=== PATIENT | male | born 1955 | race Caucasian/White ===

== ENCOUNTER 2022-01-07 10:36 | Inpatient (IN) | payer MEDICAID, SELFPAY ==
[2022-01-07] VITALS (11 sets, daily range): BP systolic 86–141; BP diastolic 41–92
[~2022-01-07] VITALS: Ht 170.2 cm; Wt 81.2 kg
--- NOTE | 2022-01-07 10:38 | NUR ---
BIBA BLS TO ER BED 3
--- NOTE | 2022-01-07 10:49 | NUR ---
Patient being evaluated by physician at bedside.
--- NOTE | 2022-01-07 10:50 | NUR ---
66 y/o M TALIRaya from [facility] for evaluation of abnormal labs of WBC 25.25. Per staff, patient noted with increased LOC since yesterday. Patient placed on 2L by N/C SpO2 97%. Pt presented with Fleming, diapered, and stage 4 coccyx pressure ulcer per staff. Pt placed onto radio sportscaster showing HR 186, RR 39, SpO2 99% on 2L by N/C. ERMD at bedside. 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
[2022-01-07] MEDS ORDERED: ADENOSINE 6 MG/2 ML VIAL IVP ONE ×4 (10:55→11:15)
--- NOTE | 2022-01-07 11:05 | NUR ---
Lab at bedside
[2022-01-07] MEDS ORDERED: DILTIAZEM 25 MG/5 ML VIAL IVP ONE ×4 (11:15→13:10)
--- NOTE | 2022-01-07 11:25 | NUR ---
EMT at bedside
--- NOTE | 2022-01-07 11:35 | NUR ---
UA collected, handed to CPT Angela at ER bedside
--- NOTE | 2022-01-07 11:41 | NUR ---
pt taken to CT. RN Dell accompanied Rad staff. pt connected to [employer] and tele monitor in route.
--- NOTE | 2022-01-07 11:55 | NUR ---
Patient returned from CT via gurney and placed back onto radiation monitor.
[2022-01-07 11:57] LABS: APPEARANCE,URINE SL CLOUDY (CLEAR); BILIRUBIN,URINE NEGATIVE (NEGATIVE); BLOOD, URINE 3+ (NEGATIVE); COLOR,URINE YELLOW (YELLOW); LEUKOCYTE ESTERASE ,URINE 3+ (NEGATIVE); NITRITE, URINE NEGATIVE (NEGATIVE); UGLUCOSE NEGATIVE (NEGATIVE)
--- NOTE | 2022-01-07 11:59 | NUR ---
BP 76/53, Dr. Garcia made aware and orders to be placed.
[2022-01-07] MEDS ORDERED: NACL 0.9% 1,000 ML IV ONE ×2 (12:00→12:50)
[2022-01-07 12:05] LABS: HEMATOCRIT 35.9 % (36-52); HEMOGLOBIN 11.3 g/dL (12.0-18.0); MEAN CORPUSCULAR HEMOGLOBIN 27 pg (27-31); MEAN CORPUSCULAR HGB CONC 32 g/dL (33-37); MEAN CORPUSCULAR VOLUME 85.8 fL (80-94); PLATELET COUNT (AUTO) 134 K/uL (140-450); RED BLOOD CELL COUNT(AUTO) 4.18 MIL/uL (4.20-6.10); RED CELL DISTRIBUTION WIDTH 16.9 % (11.6-13.7); WHITE BLOOD COUNT (AUTO) 22.4 K/uL (4.8-10.8)
--- NOTE | 2022-01-07 12:10 | NUR ---
Desi whitney collected, walked to lab and handed to CPT Angela
[2022-01-07 12:29] LABS: ALBUMIN 1.8 g/dL (3.4-5.0); ANION GAP 26.4 (8-16); CARBON DIOXIDE 13.5 mmol/L (21-32); POTASSIUM 5.9 mmol/L (3.5-5.1); TOTAL BILIRUBIN 0.5 mg/dL (0.0-1.0)
[2022-01-07 12:38] LABS: TRICHOMONAS,URINE None Seen /HPF (None Seen); WBC,URINE 16-25 (MOD) /HPF (0-5); YEAST,URINE Few /HPF (None Seen)
[2022-01-07 12:39] LABS: CALCIUM OXALATE CRYSTALS,UR 0-10 /HPF (None Seen); COARSE GRANULAR CASTS,URINE None Seen /LPF (None Seen); FINE GRANULAR CASTS,URINE None Seen /LPF (None Seen); HYALINE CASTS, URINE None Seen /LPF (None Seen); OTHER CASTS, URINE None Seen /LPF (None Seen); OTHER CRYSTALS,URINE None Seen /HPF (None Seen); RED BLOOD CELL CASTS,URINE None Seen /LPF (None Seen); TRIPLE PHOSPHATE CRYSTAL,UR None Seen /HPF (None Seen); URIC ACID CRYSTALS,URINE None Seen /HPF (None Seen); URINE AMORPHOUS URATE None Seen /HPF (None Seen); WAXY CASTS,URINE None Seen /LPF (None Seen)
[2022-01-07 12:42] LABS: LYMPHOCYTES % (MANUAL) 6 % (20-46); MONOCYTES % (MANUAL) 6 % (5-12)
[2022-01-07 12:43] LABS: CREATININE 8.6 mg/dL (0.6-1.3)
--- NOTE | 2022-01-07 13:05 | NUR ---
# 16 FR Fleming catheter with 10 ml utilizing sterile technique. Immediate return of 525 ml cloud/yellow urine noted. Bedside drainage bag placed below level of bladder. Urine sample collected and sent to lab. Pt tolerated procedure well.
--- NOTE | 2022-01-07 13:08 | NUR ---
HR 177. Dr. Garcia made aware and orders will be placed.
[2022-01-07] MEDS ORDERED: cefTRIAXone 1,000 MG VIAL ONE (13:22)
--- NOTE | 2022-01-07 13:35 | NUR ---
UNABLE TO PRINT OUT SACRAL WOUND PHOTOS. CHARGE NURSE, RECEIVING BUNDLE PACKER MADE AWARE.
--- NOTE | 2022-01-07 13:38 | NUR ---
Bedside report given to JESSI Healy.
--- NOTE | 2022-01-07 13:40 | NUR ---
Patient will be admitted to care of Dr. Coombs. Admited to ICU. Will go to room ICU-8. Belongings list completed. Report to JESSI Healy.
--- NOTE | 2022-01-07 13:40 | NUR ---
PT BROUGHT IN BY ER NURSE VIA BETTY. PT IS RESTING IN BED AND IN NO SIGN OF DISTRESS. PT IS ALERT AND ORIENTED X 1. PT HAS A RIGHT 22 G IV RUNNING NS AT 100 ML/H. PT IS ON ROOM AIR AND O2 SAT OF 100%. PT HAS A MONTEMAYOR IN PLACE WITH WHITE CLOUDY URINE WITH TRACES OF HEMATURIA. PT HAS A STAGE IV ON SACRAL AREA. ALL SAFETY PRECAUTIONS ARE IN PLACE AND WILL CONTINUE TO MONITOR.
--- NOTE | 2022-01-07 13:40 | NUR ---
SEEN BY DR. NAVARRETE.
[2022-01-07] MEDS ORDERED: ACETAMINOPHEN 325 MG TAB PO PRN (13:50)
[2022-01-07] MEDS ORDERED: SODIUM BICARBONATE 4.2% 5 MEQ/10 ML SYR IV ONE (13:50)
[2022-01-07] MEDS ORDERED: DOCUSATE SODIUM 100 MG GELCAP PO PRN (13:50)
[2022-01-07] MEDS ORDERED: ZOLPIDEM 5 MG TAB PO PRN (13:50)
[2022-01-07] MEDS ORDERED: POTASSIUM CHLORIDE 10 MEQ TABER PO PRN (13:50)
[2022-01-07] MEDS ORDERED: ONDANSETRON 4 MG/2 ML VIAL IM/IVP PRN (13:50)
[2022-01-07] MEDS ORDERED: guaiFENesin DM 200/20 MG-10 ML 10 ML UDC PO PRN (13:50)
[2022-01-07 14:19] LABS: AMYLASE 38 U/L (25-115); CHOL/HDL RATIO 6.6 (1-4.5); FREE T4 (FREE THYROXINE) 1.04 ng/dL (0.76-1.46); HDL CHOLESTEROL 15 mg/dL (40-60); LDL (CALC) 46 mg/dL (60-100); LIPASE 81 U/L (73-393); MAGNESIUM 2.4 mg/dL (1.8-2.4); PHOSPHORUS 6.1 mg/dL (2.5-4.9); THYROID STIMULATING HORMONE 1.17 uIU/mL (0.34-3.74); TRIGLYCERIDES 192 mg/dL (30-150)
[2022-01-07] MEDS: NACL 0.9% 1,000 ML IV SCH ×2 (14:50→19:24)
[2022-01-07] MEDS ORDERED: PIPERACILLIN/TAZOBACTAM 3.375 GM in DEXTROSE 5% 50 ML IV SCH (18:00)
--- NOTE | 2022-01-07 18:00 | NUR ---
SEEN BY DR. ROBBINS.
[2022-01-07] MEDS: PIPERACILLIN/TAZOBACTAM 2.25 GM in DEXTROSE 5% 50 ML IV SCH (18:50)
--- NOTE | 2022-01-07 19:25 | NUR ---
ENDORSED CARE CONTRACT ADMIN NURSE FOR CONTINUITY OF CARE.
--- NOTE | 2022-01-07 19:30 | NUR ---
PT LAYING IN BED HOB ELEVATED, BS CLEAR AT APICES ; CLEAR/DIMINISHED AT BASES, NO SIGNS OF RESPIRATORY DISTRESS NOTED AT THIS TIME. PT IS CURRENTLY SATING 97% ON RA. WILL CONTINUE TO MONITOR.
[2022-01-07] MEDS ORDERED: NOREPINEPHRINE 4 MG/4 ML VIAL IV ONE (21:59)
[2022-01-07] MEDS: NOREPINEPHRINE 4 MG in DEXTROSE 5% 250 ML IV PRN (22:02)
[2022-01-08] VITALS (24 sets, daily range): BP systolic 82–117; BP diastolic 22–75
[2022-01-08] MEDS: PIPERACILLIN/TAZOBACTAM 2.25 GM in DEXTROSE 5% 50 ML IV SCH ×4 (00:18→17:33)
--- NOTE | 2022-01-08 02:24 | NUR ---
PATIENT STABLE NOW SR IN THE 90 VITALS SIGNS IN NORMAL LIMITS CREATINE 8.6 BUN 126 I CALL HIS BROTHER AND I ASK IF HE EVER HAS DIALISYS AND HE SAY NOT //Simone RN
--- NOTE | 2022-01-08 02:26 | NUR ---
I CALL DOCTOR KACEY AND I ASK FOR NOREPINEPHRINE BECAUSE PATIENT BP IS GETTING LOW AFTER THE LEVOPHE PATIENT BP IS STABLE WE ARE GOING AT 2 MCG //DiCaprio RN
--- NOTE | 2022-01-08 02:28 | NUR ---
PATIENT GOT HIS BATH AND TOLERATED WELL ALONG WITH ORAL CARE //DiCaprio RN
--- NOTE | 2022-01-08 02:29 | NUR ---
PATIENT NPO BECAUSE DR ROBBINS GO TO DO THE WOUND AT 11 AM//Simone BOWEN
[2022-01-08] MEDS: NACL 0.9% 1,000 ML IV SCH ×2 (05:23→14:21)
[2022-01-08 05:58] LABS: BASOPHILS % (AUTO) 0.2 % (0.0-2.0); EOSINOPHILS # (AUTO) 0.2 K/uL (0-0.4); HEMATOCRIT 31.7 % (36-52); HEMOGLOBIN 10.1 g/dL (12.0-18.0); LYMPHOCYTES # (AUTO) 0.9 K/uL (2.0-11.5); LYMPHOCYTES % (AUTO) 4.6 % (20.5-51.1); MEAN CORPUSCULAR HEMOGLOBIN 27 pg (27-31); MEAN CORPUSCULAR HGB CONC 32 g/dL (33-37); MEAN CORPUSCULAR VOLUME 84.2 fL (80-94); MONOCYTES # (AUTO) 0.8 K/uL (0.8-1.0); MONOCYTES % (AUTO) 4.1 % (1.7-9.3); NEUTROPHILS # (AUTO) 16.8 K/uL (1.8-7.7); NEUTROPHILS % (AUTO) 90.1 % (42.2-75.2); PLATELET COUNT (AUTO) 135 K/uL (140-450); RED BLOOD CELL COUNT(AUTO) 3.77 MIL/uL (4.20-6.10); RED CELL DISTRIBUTION WIDTH 17.3 % (11.6-13.7); WHITE BLOOD COUNT (AUTO) 18.6 K/uL (4.8-10.8)
[2022-01-08 06:13] LABS: ANION GAP 23.5 (8-16); CARBON DIOXIDE 14.9 mmol/L (21-32); POTASSIUM 4.4 mmol/L (3.5-5.1)
--- NOTE | 2022-01-08 07:30 | NUR ---
RECEIVED REPORT FROM GAS OPERATIONS ANALYST. PT IN BED WITH HOB ELEVATED. ALERT AND ORIENTED X 1, ARABIC SPEAKING. NO SOB ON ROOM AIR, NO S/S OF PAIN. HAS A RIGHT AC 22 G IV RUNNING NS AT 125 ML/H, LEVOPHED 6MCG/MIN. MONTEMAYOR IN PLACE WITH WHITE CLOUDY URINE WITH TRACES OF HEMATURIA. STAGE IV ON SACRAL AREA. PLAN FOR DEBRIDEMENT TODAY. ALL SAFETY PRECAUTIONS ARE IN PLACE AND WILL CONTINUE TO MONITOR.
--- NOTE | 2022-01-08 08:00 | NUR ---
WITH X1 LOOSE BM, ALLAN CARE DONE
--- NOTE | 2022-01-08 08:16 | NUR ---
PATIENT HAS BEEN SCREENED AND CATEGORIZED HIGH NUTRITION RISK. PATIENT WILL BE SEEN WITHIN 1-2 DAYS OF ADMISSION. CHAVA MCGOWAN RD
--- NOTE | 2022-01-08 08:50 | NUR ---
CATERING AND EVENTS MANAGER AT BEDSIDE
[2022-01-08] MEDS: PANTOPRAZOLE 40 MG INJ VIAL IVP SCH (09:13)
--- NOTE | 2022-01-08 09:20 | NUR ---
DUE MEDS GIVEN, MONETMAYOR CARE DONE.
--- NOTE | 2022-01-08 10:15 | NUR ---
WITH X1 LOOSE BM, ALLAN CARE DONE, WOUND CULTURE OBTAINED, WOUND CARE DONE
[2022-01-08] MEDS ORDERED: LIDOCAINE 1% 500 MG/50 ML VIAL ONE (11:01)
[2022-01-08] MEDS ORDERED: BUPIVACAINE-MPF/EPI 0.25% 10 ML VIAL INJ ONE (11:01)
--- NOTE | 2022-01-08 11:10 | NUR ---
DR ROBBINS AT BEDSIDE FOR SACRAL WOUND DEBRIDEMENT
--- NOTE | 2022-01-08 11:57 | NUR ---
DC PLANNING: THE PATIENT PRESENTED FROM [facility] WITH C/O INCREASED CONFUSION AND TACHYCARDIA WITH HR IN THE 180'S IN THE FIELD. GIVEN ADENOSINE AND CARDIZEM IVP IN THE ER WELL ROCEPHIN AND IVF'S. WBC'S 22.4, K+ 5.9 CAR 8.6, LACTIC ACID 3.7, BNP 283. UA + FOR BACTERIA AND WBC'S, EKG SHOWED AFIB/FLUTTER. ORDERS FOR CONSULTS WITH NEPHRO, PULMONOLOGY, SURGERY FOR HIS SACRAL DECUBITUS, ID AND CARDIOLOGY. PATIENT TO GO TO SURGERY TODAY FOR DEBRIDEMENT OF HIS SACRAL DECUBITUS. CM SPOKE WITH [facility] AND THE PATIENTS BROTHER FEDERICA BY PHONE. THE PATIENT HAD A CVA IN SEPTEMBER OF 2021 AND WAS HOSPITALIZED AT [facility] AND THEN TRANSFERRED TO [facility]. THE PATIENT IS PRIMARILY BEDBOUND BECAUSE OF HIS DECUBITUS BUT IS NORMALLY AWAKE AND ALERT AND ABLE TO ENGAGE IN CONVERSATION AND VERBALIZE HIS NEEDS. HE IS ABLE TO FEED HIMSELF AND REPOSITIONS HIMSELF IN BED. FAMILY ARE VERY INVOLVED IN HIS CARE AND VISIT HIM ALMOST DAILY AT [facility]. DC PLAN IS TO RETURN TO [facility] WHEN CLINICALLY STABLE, CM WILL FOLLOW. Addendum: 01/08/22 at 1205 by Ingris Cottrell CM Amended: Links added. Addendum: 01/10/22 at 1539 by Brianne Thomas RN DC PLANNING: S/P DEBRIDEMENT OF SACRAL ULCER STAGE 4 CONTINUE IV ABX ZOSYN, VANCO AND AMIKACIN , LOW BP RESTARTED LEVOPHED KAILYN DUDLEY FOLLOWING PER DR CHRIS LANCASTER TRENDING [facility]WARDS SLOWLY POSSIBLE DIALYSIS LEFT A MESSAGE FOR PT'S BROTHER. CM TO FOLLOW. Addendum: 01/11/22 at 1120 by Brianne Thomas RN DC PLANNING: CALLED PATIENT'S BROTHER JONELLEFEDERICA [phone] LEFT A MESSAGE. CM TO FOLLOW Addendum: 01/11/22 at 1415 by Brianne Thomas RN DC PLANNING: RECEIVED A CALL FROM PT'S BROTHER JONELLE FEDERICA [phone] NOTIFIED HIM THAT MD WANTED TO DISCUSS WITH HIM REGARDING DIALYSIS. MR SAL STATED HE WAS OUT OF TOWN AND JUST COME BACK AND CAN CALL HIM ANY TIME. CALLED DR PEREZ OCCUPATIONAL THERAPY ASSISTANT LEFT A MESSAGE. CM TO FOLLOW Addendum: 01/16/22 at 1724 by Brianne Thomas RN DC PLANNING: PATIENT IS ACCEPTED AT [facility] # TO GIVE REPORT [phone] CAN GO TO ROOM [facility] ARRANGED TRANSPORT WITH [employer] TIME 7 PM NOTIFIED SHALINI LUCAS CM TO FOLLOW Addendum: 01/16/22 at 1725 by Brianne Thomas RN DC PLANNING: PER DR NEHA PEARSON CANCELLED BECAUSE BONE SCAN NOT DONE. CM TO FOLLOW Addendum: 01/17/22 at 1249 by Brianne Thomas RN DC PLANNING: PATIENT IS GOING TO [facility] ROOM 214A ARRANGED TRANSPORT WITH [facility] UPTIME 2:45 PM NOTIFIED SHALINI BOWEN CM TO FOLLOW
--- NOTE | 2022-01-08 12:46 | NUR ---
PT ASLEEP IN BED, NO SOB, FLACC 0
[2022-01-08] MEDS: NOREPINEPHRINE 4 MG in DEXTROSE 5% 250 ML IV PRN (13:43)
--- NOTE | 2022-01-08 15:15 | NUR ---
PICC LINE INSERTED, PLACEMENT CONFIRMED BY CXR
--- NOTE | 2022-01-08 15:15 | NUR ---
RECEIVED BEDSIDE REPORT FROM THOMAS BOWEN FOR CONTINUITY OF CARE. PT IS SUPINE IN THE BED, AAOX1 AT BASELINE, PERRLA. ON ROOM AIR. SR ON THE MONITOR. ACTIVE BOWEL SOUNDS. INCONTINENT OF BOWEL. F/C TO GRAVITY, 300 ML NOTED IN THE BAG. PICC LINE TO COTY. RAC 22G IV, RFA 22G IV. INFUSING NS AT 125 ML/HR AND LEVOPHED AT 6 MCG/MIN. SKIN NOT INTACT, SACRAL WOUND, SEE WOUND ASSESSMENT. GENERALIZED WEAKNESS. ON STANDARD PRECAUTIONS. SAFETY PRECAUTIONS MET. INITIAL ASSESSMENT COMPLETE, WILL CONTINUE TO CLOSELY MONITOR.
--- NOTE | 2022-01-08 15:55 | NUR ---
01/08/22 RD INITIAL ASSESSMENT COMPLETED PLEASE REFER TO NUTRITION ASSESSMENT UNDER CARE ACTIVITY FOR ESTIMATED NUTRITIONAL NEEDS. 1. WHEN/IF MEDICALLY APPROPRIATE, RECOMMEND RENAL, MECHANICAL SOFT DIET 2. MONITOR NUTRITION-RELATED LAB VALUES 3. RD TO FOLLOW-UP 2-3 DAYS, HIGH RISK CHAVA MCGOWAN, LEANDRA
--- NOTE | 2022-01-08 17:15 | NUR ---
PT CLEANED AND REPOSITIONED. M LIGHT BROWN STOOL WITH MUCOUS NOTED. CHANGED DRESSING. WILL CONTINUE TO MONITOR.
--- NOTE | 2022-01-08 18:00 | NUR ---
PT EATING DINNER. COMPLETED 75%.
--- NOTE | 2022-01-08 18:20 | NUR ---
PT SEEN AND EXAMINED BY DR ROSARIO. NO NEW ORDERS AT THIS TIME. CONSIDERING HEMODIALYSIS, WILL REASSESS TOMORROW.
--- NOTE | 2022-01-08 19:10 | NUR ---
ENDORSED BEDSIDE REPORT TO JUAN PARHAM RN FOR CONTINUITY OF CARE.
--- NOTE | 2022-01-08 19:25 | NUR ---
PM SHIFT ASSESSMENT Patient is awake and alert, follows commands. Patient is on room air, RR even and unlabored. SR on monitor. Skin warm and dry. COTY PICCLINE in place with IVF infusing, no signs of infiltration noted. Fleming catheter in place and draining to gravity. Safety precautions in place, will continue to monitor.
[2022-01-08] MEDS: HYDROcodone/APAP 7.5/325 MG 1 TAB PO PRN (21:07)
--- NOTE | 2022-01-08 21:30 | NUR ---
Patient requesting something to eat and pain medication for left leg pain. Food provided per diet order and [place] given per MD order. Will continue to monitor.
[2022-01-09] VITALS (24 sets, daily range): BP systolic 77–124; BP diastolic 54–72
[2022-01-09] MEDS: NACL 0.9% 1,000 ML IV SCH ×4 (00:08→20:45)
[2022-01-09] MEDS: PIPERACILLIN/TAZOBACTAM 2.25 GM in DEXTROSE 5% 50 ML IV SCH ×4 (00:08→18:00)
[2022-01-09 05:43] LABS: BASOPHILS # (AUTO) 0.1 K/uL (0.00-0.22); BASOPHILS % (AUTO) 0.5 % (0.0-2.0); EOSINOPHILS # (AUTO) 0.9 K/uL (0-0.4); EOSINOPHILS % (AUTO) 6.3 % (0.0-4.0); HEMATOCRIT 28.3 % (36-52); HEMOGLOBIN 9.1 g/dL (12.0-18.0); LYMPHOCYTES # (AUTO) 1.5 K/uL (2.0-11.5); LYMPHOCYTES % (AUTO) 10.3 % (20.5-51.1); MEAN CORPUSCULAR HEMOGLOBIN 27 pg (27-31); MEAN CORPUSCULAR HGB CONC 32 g/dL (33-37); MEAN CORPUSCULAR VOLUME 84.8 fL (80-94); MONOCYTES # (AUTO) 0.8 K/uL (0.8-1.0); MONOCYTES % (AUTO) 5.6 % (1.7-9.3); NEUTROPHILS # (AUTO) 11.4 K/uL (1.8-7.7); NEUTROPHILS % (AUTO) 77.3 % (42.2-75.2); PLATELET COUNT (AUTO) 120 K/uL (140-450); RED BLOOD CELL COUNT(AUTO) 3.34 MIL/uL (4.20-6.10); WHITE BLOOD COUNT (AUTO) 14.8 K/uL (4.8-10.8)
[2022-01-09 06:12] LABS: ANION GAP 23.7 (8-16); CARBON DIOXIDE 14.5 mmol/L (21-32); POTASSIUM 4.2 mmol/L (3.5-5.1)
[2022-01-09 06:37] LABS: CREATININE 7.7 mg/dL (0.6-1.3)
[2022-01-09 07:08] LABS: T4 (THYROXINE) 4.1 ug/dL (4.5-12.0)
--- NOTE | 2022-01-09 07:10 | NUR ---
Dr. Brian brito on pt. States to turn off sedation to place pt on CPAP trial before attempting extubation. Addendum: 01/09/22 at 0753 by Agency Nurse JESSI Cedillo RN INCORRECT PATIENT
--- NOTE | 2022-01-09 07:20 | NUR ---
Dr. Torres rounding on pt. No new orders at this time.
--- NOTE | 2022-01-09 07:30 | NUR ---
ENDORSEMENT Patient care endorsed to carri BOWEN.
--- NOTE | 2022-01-09 07:30 | NUR ---
Received report on pt. Pt AAOx 2 to 3, able to verbalize needs, soft spoken. Pt states no pain at this time. No signs of acute distress noted. PICC line present in COTY with IVF and levophed drip running. Fleming in place draining urine to gravity. Multiple skin issues present, currently wearing knee brace, pt also has vitiligo. No other complaints at this time.
--- NOTE | 2022-01-09 08:30 | NUR ---
Pt finished 75% of breakfast tray this morning. Total assist needed for feeding. Pt tolerated well.
[2022-01-09] MEDS: PANTOPRAZOLE 40 MG INJ VIAL IVP SCH (09:30)
--- NOTE | 2022-01-09 11:25 | NUR ---
WOUND CARE EVALUATION NOTES: SKIN ASSESSMENT DONE ON WITH PRIMARY RN ON THIS 66 Y/O PATIENT ADMITTED TO [facility] WITH INITIAL DIAGNOSIS OF ALOC AND TACHYCARDIA. PAST MEDICAL HX: CVA AND PRESSURE INJURY. ALL ABOVE INFORMATION WAS OBTAINED FROM THE ADMISSION H&P. PER PRIMARY RN DR. ROBBINS PERFORMED BEDSIDE DEBRIDEMENT. PT. LEFT LOWER EXTREMITY WITH KNEE BRACE, SKIN ALTERATION NOTICES DURING ASSESSMENT WHEN BRACE REMOVED. PT. WITH HX OF CABG, REPORT TO DR. PRAKASH AND RECOMMEND ARTERIAL ULTRASOUND AND PER DR. PRAKASH TO LEAVE KNEE BRACE OFF. PT. ADMITTED WITH LOW FRANCISCO SCALE AT HIGH RISK, CONTINUE TO FOLLOW PRESSURE INJURY PREVENTION INTERVENTIONS. S/P SACRAL WOUND DEBRIDEMENT ON 01/08/2022. WOUND CULTURE PENDING. PLAN OF CARE DISCUSSED WITH PRIMARY RN. INTEGUMENTARY: -GENERALIZED VITILIGO LIMBS AND TRUNK OF BODY -DATA WAREHOUSE CONSULTANT RELATED PRESSURE INJURY TO LEFT KNEE BLANCHABLE REDNESS 2X7CM SKIN INTACT, LEFT STEPHEN 13X2 CM DTI, SKIN INTACT -DTI LEFT MEDIAL HEEL 3X4CM, SKIN INTACT -PRESSURE INJURY STAGE 4 SACRALCOCCYX INFECTED WOUND S/P DEBRIDEMENT [id number] UNDERMINING 3 OCLOCK DIRECTION 2CM, WOUND BED 40% PALE PINK TISSUE, 60 % MIRELES/BLACK SLOUGH TISSUE WITH MODERATE AMOUNT SEROSANGUINEOUS BLEEDING, MILD ODOR, WOUND EDGE WELL DEFINED, WITH ALLAN-WOUND SKIN DTI TO 3 OCLOCK DIRECTION 2X3CM, SEVERE MOISTURE ASSOCIATED DERMATITIS WITH DENUDED SKIN EXTENDED TO ALLAN-ANAL AND POSTERIOR MEDIAL THIGHS AND FURTHER DAMAGE INDICATED . RECOMMENDATIONS: -ARTERIAL ULTRASOUND TO BLE -KEEP KNEE BRACE OFF -APPLY SKIN PREP WIPE TO LEFT KNEE, LEFT STEPHEN, AND LEFT MEDIAL HEEL BID AND CHOLO -APPLY HEEL RAISERS TO HEELS, OFFLOAD HEELS -CLEANSE SACRALCOCCYX WOUND WITH NS. PAT DRY, PACK WITH SILVER ALGINATE DRESSING TO WOUND BED AND PACK WITH FANFOLED ONE PIECE KERLIX ROLL THEN APPLY CALMOSEPTINE CR. TO ALLAN WOUND SKIN, COVER WITH DRY DRESSING, SECURE WITH TAPE QD AND PRN IF SOILING -APPLY CALMOSEPTINE CR. TO SEVERE MOISTURE ASSOCIATED DERMATITIS TO ALLAN-ANAL AND POSTERIOR MEDIAL THIGHS SKIN BID AND PRN IF SOILING -POSITIONING: TURN AND REPOSITION PATIENT Q 2H OR SOONER USE PILLOWS TO KEEP BONY PROMINENCES FROM DIRECT CONTACT WITH SURFACES USE REPOSITIONING WEDGES TO PROVIDE 30-DEGREE ANGLE FOR SIDE LYING POSITIONS OFFLOADING OR FOAM DRESSING TO ALL TUBING TO PREVENT MEDICAL DEVICES RELATED PRESSURE INJURY -RE-EVALUATING AND MANAGING INCONTINENCE MONITOR SKIN CONDITION DURING POSITION CHANGE DO NOT MASSAGE REDNESS, BONY PROMINENCES, DO NOT USE DONUT-TYPE DEVICES FREQUENT ALLAN-CARE AND PROVIDE BARRIER CREAMS PRN IF SOILING MOISTURE CONTROL BY OFFER BED BADILLO/URINAL /ABSORBENT PAD TO WICK AND HOLD MOISTURE KEEP SKIN DRY AND PROTECT FROM FRICTION -MANAGE FRICTION/SHEAR/MOBILITY KEEP HOB AT THE LOWEST LEVEL OF ELEVATION NO MORE THAN 30 DEGREE UNLESS OTHERWISE CONTRAINDICATED USE LIFT SHEET OR TRANSFER DEVICE TO MOVE PATIENT AND PREVENT LATERAL SHEER. PROTECT HEELS, ELBOWS BONY PROMINENCES WITH SKIN BERRIES OR FOAM DRESSING IF EXPOSED TO FRICTION OFFLOAD BILATERAL HEELS BY PLACING PILLOWS UNDER CALVES AT ALL TIMES, UNLESS OTHERWISE CONTRAINDICATED -PRESSURE REDISTRIBUTION SURFACE THERAPY ABDIFATAH ISOFLEX SKYLER MATTRESS -NUTRITION: PLEASE FOLLOW RD RECOMMENDATIONS AND OFFER NUTRITION SUPPLEMENTS IF ORDERED. Addendum: 01/09/22 at 1242 by Raj Delong RN (Grace) -CLEANSE SACRALCOCCYX WOUND WITH NS. PAT DRY, PACK WITH SILVER ALGINATE DRESSING TO WOUND BED AND PACK WITH FANFOLED ONE PIECE KERLIX ROLL THEN APPLY CALMOSEPTINE CR. TO ALLAN WOUND SKIN, COVER WITH DRY DRESSING, SECURE WITH TAPE Q3D AND PRN IF SOILING
[2022-01-09] MEDS: MIDODRINE 5 MG TAB PO SCH ×2 (12:13→18:00)
--- NOTE | 2022-01-09 12:25 | NUR ---
Ultrasound at bedside for DVT screening per MD order
[2022-01-09] MEDS: MENTHOL/ZINC OXIDE 113 GM TUBE TP SCH (13:16)
[2022-01-09] MEDS ORDERED: VANCOMYCIN PER PHARMACY MC PRN (15:00)
[2022-01-09] MEDS ORDERED: VANCOMYCIN HCL 1.25 GM in DEXTROSE 5% 250 ML IV SCH (16:00)
[2022-01-09] MEDS ORDERED: AMIKACIN PER PHARMACY MC PRN (22:10)
[2022-01-09] MEDS ORDERED: AMIKACIN 600 MG in DEXTROSE 5% 100 ML IV SCH (22:30)
[2022-01-09] MEDS ORDERED: AMIKACIN 500 MG/2 ML VIAL IV ONE (23:15)
[2022-01-10] VITALS (25 sets, daily range): BP systolic 86–139; BP diastolic 50–81
[2022-01-10] MEDS: PIPERACILLIN/TAZOBACTAM 2.25 GM in DEXTROSE 5% 50 ML IV SCH ×4 (00:21→18:16)
[2022-01-10] MEDS: MENTHOL/ZINC OXIDE 113 GM TUBE TP SCH ×2 (00:22→13:00)
--- NOTE | 2022-01-10 00:50 | NUR ---
PATIENTCALM SLEEPING AT THIS TIME VITALS SIGNS IN NORMAL LIMITS STABLE NOT COMPLAINING OF PAIN //DiCaprio RN
[2022-01-10] MEDS: NACL 0.9% 1,000 ML IV SCH ×3 (05:14→22:03)
[2022-01-10] MEDS: MIDODRINE 5 MG TAB PO SCH ×3 (05:30→18:17)
[2022-01-10 06:30] LABS: BASOPHILS % (AUTO) 0.3 % (0.0-2.0); EOSINOPHILS # (AUTO) 1.1 K/uL (0-0.4); HEMATOCRIT 30.3 % (36-52); HEMOGLOBIN 9.7 g/dL (12.0-18.0); LYMPHOCYTES # (AUTO) 1.3 K/uL (2.0-11.5); LYMPHOCYTES % (AUTO) 9.7 % (20.5-51.1); MEAN CORPUSCULAR HEMOGLOBIN 27 pg (27-31); MEAN CORPUSCULAR HGB CONC 32 g/dL (33-37); MEAN CORPUSCULAR VOLUME 84.1 fL (80-94); MONOCYTES # (AUTO) 0.6 K/uL (0.8-1.0); MONOCYTES % (AUTO) 4.7 % (1.7-9.3); NEUTROPHILS # (AUTO) 10.2 K/uL (1.8-7.7); NEUTROPHILS % (AUTO) 77.3 % (42.2-75.2); PLATELET COUNT (AUTO) 138 K/uL (140-450); RED CELL DISTRIBUTION WIDTH 17.2 % (11.6-13.7); WHITE BLOOD COUNT (AUTO) 13.2 K/uL (4.8-10.8)
[2022-01-10 06:39] LABS: ANION GAP 21.2 (8-16); CARBON DIOXIDE 13.8 mmol/L (21-32)
[2022-01-10 06:55] LABS: CREATININE 7.2 mg/dL (0.6-1.3)
--- NOTE | 2022-01-10 07:09 | NUR ---
Received report on pt. Pt AAOx2/3, no signs of acute distress on room air, states no pain at this time. Remains on levophed drip and IVF. Fleming in place draining urine to gravity. No other complaints at this time.
[2022-01-10] MEDS: ECOTRIN 81 MG TABEC PO SCH (08:40)
[2022-01-10] MEDS: PANTOPRAZOLE 40 MG INJ VIAL IVP SCH (08:40)
--- NOTE | 2022-01-10 10:52 | NUR ---
Dr. Jerel brito on pt. Placed call out x2 to pt's brother Ramon Melvin [phone], no answer, left voicemail.
--- NOTE | 2022-01-10 11:07 | NUR ---
Pt receiving kidney ultrasound at bedside
--- NOTE | 2022-01-10 12:00 | NUR ---
Attempted to feed pt lunch, pt noted with hiccups. Pt was able to have soup from tray and take scheduled medication crushed before hiccups started. Informed pt will try again later. Vitals stable, no acute distress on room air. Saturating 99%
[2022-01-10] MEDS: NOREPINEPHRINE 4 MG in DEXTROSE 5% 250 ML IV PRN (14:07)
--- NOTE | 2022-01-10 14:29 | NUR ---
01/10/22 RD FOLLOW UP COMPLETED PLEASE REFER TO NUTRITION ASSESSMENT UNDER CARE ACTIVITY FOR ESTIMATED NUTRITIONAL NEEDS. 1. CONTINUE RENAL, MECHANICAL SOFT DIET TOLERATED 2. RECOMMEND NEPRO BID PER RD PROTOCOL 3. RECOMMEND VITAMIN C AND ZINC FOR WOUND HEALING 4. RD TO FOLLOW-UP 2-3 DAYS, HIGH RISK CHAVA MCGOWAN, LEANDRA
--- NOTE | 2022-01-10 15:00 | NUR ---
Perform wound care dressing change for soiled dressing. CHG bath given, linen changed.
--- NOTE | 2022-01-10 15:30 | NUR ---
Dr. Gill rounding on pt
--- NOTE | 2022-01-10 18:25 | NUR ---
Pt noted with on and off hiccups, Dr. Ivey made aware and states new orders to give Reglan 5 mg IV Q8HR PRN for hiccups.
[2022-01-10] MEDS ORDERED: METOCLOPRAMIDE 10 MG/2 ML INJ VIAL ONE (18:44)
[2022-01-10] MEDS: METOCLOPRAMIDE 10 MG/2 ML INJ VIAL IVP PRN (18:45)
--- NOTE | 2022-01-10 18:47 | NUR ---
Administered reglan PRN per MD order for hiccups
--- NOTE | 2022-01-10 19:08 | NUR ---
Endorsed plan of care to RN.
[2022-01-10] MEDS ORDERED: SIMVASTATIN 40 MG TAB ONE (21:31)
[2022-01-11] VITALS (20 sets, daily range): BP systolic 102–136; BP diastolic 50–78
[2022-01-11] MEDS: PIPERACILLIN/TAZOBACTAM 2.25 GM in DEXTROSE 5% 50 ML IV SCH ×5 (00:40→23:56)
[2022-01-11] MEDS: MENTHOL/ZINC OXIDE 113 GM TUBE TP SCH ×2 (00:41→12:25)
--- NOTE | 2022-01-11 02:25 | NUR ---
PATENT SLEEPING AT THIS TIME STABLE VITALS SIGNS IN NORMAL LIMITS NOT COMPLAINING OF PAIN //DiCaprio RN
[2022-01-11] MEDS: METOCLOPRAMIDE 10 MG/2 ML INJ VIAL IVP PRN (04:38)
[2022-01-11] MEDS: NACL 0.9% 1,000 ML IV SCH (04:59)
[2022-01-11] MEDS: MIDODRINE 5 MG TAB PO SCH ×3 (05:02→18:14)
[2022-01-11 05:49] LABS: BASOPHILS % (AUTO) 0.4 % (0.0-2.0); EOSINOPHILS # (AUTO) 0.6 K/uL (0-0.4); EOSINOPHILS % (AUTO) 4.4 % (0.0-4.0); HEMATOCRIT 30.1 % (36-52); HEMOGLOBIN 9.6 g/dL (12.0-18.0); LYMPHOCYTES # (AUTO) 1.6 K/uL (2.0-11.5); LYMPHOCYTES % (AUTO) 12.3 % (20.5-51.1); MEAN CORPUSCULAR HEMOGLOBIN 27 pg (27-31); MEAN CORPUSCULAR HGB CONC 32 g/dL (33-37); MEAN CORPUSCULAR VOLUME 83.9 fL (80-94); MONOCYTES # (AUTO) 0.6 K/uL (0.8-1.0); MONOCYTES % (AUTO) 4.5 % (1.7-9.3); NEUTROPHILS # (AUTO) 10.1 K/uL (1.8-7.7); NEUTROPHILS % (AUTO) 78.4 % (42.2-75.2); PLATELET COUNT (AUTO) 162 K/uL (140-450); RED BLOOD CELL COUNT(AUTO) 3.59 MIL/uL (4.20-6.10); RED CELL DISTRIBUTION WIDTH 17.1 % (11.6-13.7); WHITE BLOOD COUNT (AUTO) 12.9 K/uL (4.8-10.8)
[2022-01-11 07:03] LABS: ANION GAP 23.9 (8-16); CARBON DIOXIDE 11.1 mmol/L (21-32)
--- NOTE | 2022-01-11 07:35 | NUR ---
RECEIVED REPORT FROM WIND TURBINE MECHANICAL ENGINEER NURSE FOR CONTINUITY OF CARE. PT IN BED WITH HOB ELEVATED. ALERT AND ORIENTED X 2, GREENLANDIC SPEAKING. NO SOB ON ROOM AIR, NO S/S OF PAIN. HAS COTY PIC LINE RUNNING NS AT 125 ML/H, LEVOPHED 1 MCG/MIN. MONTEMAYOR IN PLACE WITH WHITE CLOUDY URINE. SKIN IS WARM, DRY, AND NON-INTACT. STAGE IV ON SACRAL AREA. S/P SACRAL DEBRIDEMENT 01/08/22. MONTEMAYOR CATH IN PLACE DRAINING CLOUDY YELLOW URINE. PLAN OF CARE DISCUSSED. ALL SAFETY PRECAUTIONS ARE IN PLACE AND WILL CONTINUE TO MONITOR.
--- NOTE | 2022-01-11 09:20 | NUR ---
ALL SCHEDULED MEDS GIVEN. PT IS STABLE. NO DISTRESS NOTED. WILL CONTINUE TO MONITOR.
[2022-01-11] MEDS: ECOTRIN 81 MG TABEC PO SCH (09:21)
[2022-01-11] MEDS: PANTOPRAZOLE 40 MG INJ VIAL IVP SCH (09:21)
--- NOTE | 2022-01-11 10:55 | NUR ---
DR. BOUCHER AT PATIENT'S BEDSIDE.
--- NOTE | 2022-01-11 11:23 | NUR ---
DR. GROVER AT PATIENT'S BEDSIDE.
[2022-01-11] MEDS: SODIUM BICARBONATE 8.4% 100 MEQ in NACL 0.45% 1,000 ML IV SCH ×2 (12:22→22:22)
--- NOTE | 2022-01-11 12:58 | NUR ---
ALL SCHEDULED MEDS GIVEN. PT IS STABLE. NO DISTRESS NOTED. WILL CONTINUE TO MONITOR.
--- NOTE | 2022-01-11 13:10 | NUR ---
CHANGED PATIENT'S DRESSING AND KEPT CLEAN AND DRY.
--- NOTE | 2022-01-11 15:30 | NUR ---
VISITOR AT PATIENT'S BEDSIDE.
--- NOTE | 2022-01-11 18:15 | NUR ---
ALL SCHEDULED MEDS GIVEN. PT IS STABLE. NO DISTRESS NOTED. WILL CONTINUE TO MONITOR.
--- NOTE | 2022-01-11 19:41 | NUR ---
ENDORSED TO BARREL HEADER NURSE FOR CONTINUITY OF CARE. PT IS STABLE.
--- NOTE | 2022-01-11 19:45 | NUR ---
RECEIVED REPORT AT BEDSIDE FROM DAYAMI JOHNSON FOR CONTINUITY OF CARE, PT SITTING UP IN BED HOB ELEVATED 45% HE IS RESTING IN BED WATCHING TV ON ROOM AIR WITH NO S/S OF PAIN OR DISTRESS NOTED. HE HAS A RIGHT UPPER ARM PICC LINE RUNNING SODIUM BICARB AT 100MLS/HR. PT ALSO HAS A MONTEMAYOR CATHETER INTACT DRAINING YELLOW URINE. V/S FOLLOWS: PT 98.5 P 67 R 18 B/P 116/61 02 96%. ALL FALLS PRECAUTIONS IN PLACE.
--- NOTE | 2022-01-11 21:15 | NUR ---
PT WAS TURNED, CHANGED AND REPOSITIONED IN BED. DRESSING ON SACRAL CLEANED AND CHANGED DUE TO PT HAVING A BOWEL MOVEMENT.PT WAS GIVEN ORDERED HEPARIN SQ SHOT PT IS AOX 1-2 AND UNABLE TO VERBALIZE UNDERSTANDING OF MEDICATION. ALL ORDERED PRECAUTIONS IN PLACE.
--- NOTE | 2022-01-11 22:40 | NUR ---
PT SITTING UP IN BED WATCHING TV ON ROOM AIR S/S OF PAIN OR DISTRESS NEW BAG OF SODIUM BICARBONATE HUNG. ALL ORDERED PRECAUTIONS IN PLACE.
[2022-01-12] VITALS (9 sets, daily range): BP systolic 103–141; BP diastolic 57–79
--- NOTE | 2022-01-12 00:27 | NUR ---
PT WAS GIVEN ORDERED IVPB ZOSYN WHICH WAS HUNG AND RUNNING ORDERED. PT UNABLE TO VERBALIZE UNDERSTANDING. PT ALSO TURNED CHANGED AND REPOSITIONED IN BED NEW DRESSING PROVIDED BECAUSE OLD DRESSING WAS SOILED. CALMOSEPTINE LOTION PROVIDED TO ALLAN REDNESS AREAS.
[2022-01-12] MEDS: MENTHOL/ZINC OXIDE 113 GM TUBE TP SCH ×2 (01:10→12:54)
[2022-01-12] MEDS: METOCLOPRAMIDE 10 MG/2 ML INJ VIAL IVP PRN (03:00)
--- NOTE | 2022-01-12 03:50 | NUR ---
PT WAS TURNED, CLEANED AND REPOSITIONED IN BED. WOUND CARE REDRESSED DUE TO PT HAVING ANOTHER BM. MONTEMAYOR CATHETER CARE PROVIDED.PT PROVIDED ORAL CARE WELL. ALL ORDERED PRECAUTIONS IN PLACE.
--- NOTE | 2022-01-12 04:30 | NUR ---
PT TRANSFERRED TO [facility] UNIT ROOM 121B. BICARB CONTINUES TO RUN AT 100MLS/HR ORDERED. PT REQUESTS ATTENDED BY STAFF.ALL ORDERED PRECAUTIONS IN PLACE.
[2022-01-12] MEDS: PIPERACILLIN/TAZOBACTAM 2.25 GM in DEXTROSE 5% 50 ML IV SCH ×3 (05:48→17:52)
--- NOTE | 2022-01-12 06:03 | NUR ---
LUIS HUNG AND RUNNING ORDERED.
[2022-01-12] MEDS: MIDODRINE 5 MG TAB PO SCH ×3 (06:21→18:08)
--- NOTE | 2022-01-12 06:32 | NUR ---
MIDODRINE HELD DUE TO INCREASED B/P. B/P IS (120/65)
--- NOTE | 2022-01-12 07:30 | NUR ---
RECEIVED REPORT FROM SENIOR HEALTH EDUCATOR NURSE FOR CONTINUITY OF CARE. PT IN BED WITH HOB ELEVATED. ALERT AND ORIENTED X 2, NORWEGIAN SPEAKING. NO SOB ON ROOM AIR, NO S/S OF PAIN. HAS COTY PIC LINE RUNNING INFUSING FLUIDS WELL. MONTEMAYOR IN PLACE WITH WHITE CLOUDY URINE. SKIN IS WARM, DRY, AND NON-INTACT. STAGE IV ON SACRAL AREA. S/P SACRAL DEBRIDEMENT 01/08/22. REINFORCED WITH DRESSING. MONTEMAYOR CATH IN PLACE DRAINING CLOUDY YELLOW URINE. PLAN OF CARE DISCUSSED. ALL SAFETY PRECAUTIONS ARE IN PLACE AND WILL CONTINUE TO MONITOR.
[2022-01-12] MEDS: PANTOPRAZOLE 40 MG INJ VIAL IVP SCH (08:41)
[2022-01-12] MEDS: ECOTRIN 81 MG TABEC PO SCH (08:41)
[2022-01-12] MEDS: SODIUM BICARBONATE 8.4% 100 MEQ in NACL 0.45% 1,000 ML IV SCH ×2 (09:07→22:00)
--- NOTE | 2022-01-12 09:45 | NUR ---
ALL SCHEDULED MEDS GIVEN. PT IS STABLE. NO DISTRESS NOTED. WILL CONTINUE TO MONITOR.
--- NOTE | 2022-01-12 11:04 | NUR ---
(01/12/22) RD FOLLOW UP COMPLETED PLEASE REFER TO NUTRITION PROGRESS NOTE UNDER CARE ACTIVITY FOR ESTIMATED NUTRITION NEEDS. RD RECOMMENDATIONS: 1. IF PO INTAKES CONTINUE ~25%, CONSIDER LIBERALIZING DIET OF 2GM SODIUM, MECHANICAL SOFT. ---IF PT START DIALYSIS, CONSIDER CONTINUING ON RENAL MECHANICAL SOFT DIET. 2. CONTINUE NEPRO BID PER RD PROTOCOL 3. RD TO FOLLOW-UP 2-3 DAYS, HIGH RISK THANH BRANHAM MS, RDN
[2022-01-12] MEDS: ALGINATE DRESSING MC SCH (12:54)
--- NOTE | 2022-01-12 13:35 | NUR ---
ALL SCHEDULED MEDS GIVEN. PT IS STABLE. NO DISTRESS NOTED. WILL CONTINUE TO MONITOR
--- NOTE | 2022-01-12 15:05 | NUR ---
CHECKED ON PATIENT. PT IS STABLE. NO DISTRESS NOTED. WILL CONTINUE TO MONITOR.
--- NOTE | 2022-01-12 18:14 | NUR ---
ALL SCHEDULED MEDS GIVEN. PT IS STABLE. NO DISTRESS NOTED. WILL CONTINUE TO MONITOR.
[2022-01-12] MEDS ORDERED: VANCOMYCIN PER PHARMACY MC PRN (18:40)
--- NOTE | 2022-01-12 19:30 | NUR ---
ENDORSED TO HOSPITALIST PHYSICIAN NURSE FOR CONTINUITY OF CARE. PT IS STABLE.
[2022-01-12] MEDS ORDERED: VANCOMYCIN 1GM/DEXT 5% PREMIX 200 ML IV ONE (22:40)
[2022-01-12] MEDS ORDERED: VANCOMYCIN 1,000 MG VIAL ONE (22:44)
[2022-01-13] VITALS (7 sets, daily range): BP systolic 94–139; BP diastolic 49–71
[2022-01-13] MEDS: PIPERACILLIN/TAZOBACTAM 2.25 GM in DEXTROSE 5% 50 ML IV SCH ×4 (00:23→17:29)
--- NOTE | 2022-01-13 00:52 | NUR ---
PATIENT SLEEPING ON ROOM AIR SAT 97% ON MONITOR SINUS. LUNGS DIMINISH ABDOMEN SOFT OBESE HAS RIGHT PICC LINE INFUSING I/2 NS 2 AMPS NA BICARB 100 HOUR. HAS F/C DRAINING YELLOW URINE.PHARMACY CALL TO TELL ME TO GIVE VANCO 1 GRM AT 2300 WAS GIVEN.PATIENT HAS A STAGE 4 AT SACRUM. CARE DONE AT 0100 TO WOUND. NO DISTRESS NOTED.
[2022-01-13] MEDS: MENTHOL/ZINC OXIDE 113 GM TUBE TP SCH ×2 (01:06→13:16)
[2022-01-13] MEDS: SODIUM BICARBONATE 8.4% 100 MEQ in NACL 0.45% 1,000 ML IV SCH ×2 (06:00→09:10)
[2022-01-13] MEDS: MIDODRINE 5 MG TAB PO SCH ×3 (06:18→18:46)
--- NOTE | 2022-01-13 07:40 | NUR ---
NOTES: Received report from rafat BOWEN, patient alert, awake, slow response, Estonian speaking, vomited blood with clots, oral suction and oral rinse done, per report no bleeding last night. morning care provided. keep hob elevated to prevent aspiration.
--- NOTE | 2022-01-13 07:45 | NUR ---
found patient with blood from oral and nares - assisted rn with setting up of suction and cleaning up patient.
[2022-01-13 07:51] LABS: BASOPHILS # (AUTO) 0.1 K/uL (0.00-0.22); BASOPHILS % (AUTO) 0.5 % (0.0-2.0); EOSINOPHILS # (AUTO) 0.4 K/uL (0-0.4); EOSINOPHILS % (AUTO) 3.5 % (0.0-4.0); HEMATOCRIT 25.2 % (36-52); HEMOGLOBIN 8.2 g/dL (12.0-18.0); LYMPHOCYTES # (AUTO) 1.7 K/uL (2.0-11.5); MEAN CORPUSCULAR HEMOGLOBIN 26 pg (27-31); MEAN CORPUSCULAR HGB CONC 32 g/dL (33-37); MEAN CORPUSCULAR VOLUME 81.7 fL (80-94); MONOCYTES # (AUTO) 0.6 K/uL (0.8-1.0); MONOCYTES % (AUTO) 4.6 % (1.7-9.3); NEUTROPHILS % (AUTO) 78.4 % (42.2-75.2); PLATELET COUNT (AUTO) 213 K/uL (140-450); RED BLOOD CELL COUNT(AUTO) 3.09 MIL/uL (4.20-6.10); WHITE BLOOD COUNT (AUTO) 12.8 K/uL (4.8-10.8)
[2022-01-13 08:57] LABS: ANION GAP 15.8 (8-16); CARBON DIOXIDE 22.2 mmol/L (21-32)
[2022-01-13] MEDS: ECOTRIN 81 MG TABEC PO SCH (09:00)
[2022-01-13 09:03] LABS: CREATININE 5.6 mg/dL (0.6-1.3)
[2022-01-13] MEDS: PANTOPRAZOLE 40 MG INJ VIAL IVP SCH ×2 (09:10→21:00)
[2022-01-13] MEDS ORDERED: COMMUNICATION ORDER MC PRN (09:25)
[2022-01-13] MEDS ORDERED: VANCOMYCIN 1,000 MG in DEXTROSE 5% 250 ML IV SCH (11:00)
--- NOTE | 2022-01-13 13:00 | NUR ---
patient had large bowel movement bloody with clots. sample for stool ob collected and sent to lab. dr. campuzano (IM) and DR kinsey ( Nephro) is here made aware. new order received noted.
[2022-01-13] MEDS: KCL 20 MEQ/WATER INJ PREMIX 200 ML IV SCH ×2 (13:08→15:15)
[2022-01-13 13:47] LABS: HEMATOCRIT 24.8 % (36-52)
[2022-01-13 14:48] LABS: MAGNESIUM 1.5 mg/dL (1.8-2.4)
--- NOTE | 2022-01-13 15:19 | NUR ---
Notes: patient currentyly off unit for CT scan ordered.
[2022-01-13 18:20] LABS: HEMATOCRIT 22.2 % (36-52); HEMOGLOBIN 7.2 g/dL (12.0-18.0)
--- NOTE | 2022-01-13 19:00 | NUR ---
patient consumed 100% of nephro supplement. MD campuzano informed about the result of h/h and mg. new order received noted and carried out.
[2022-01-13] MEDS ORDERED: MAG SULF 2000 MG/WATER PREMIX 50 ML IV ONE (19:05)
[2022-01-13] MEDS: FUROSEMIDE 20 MG/2 ML VIAL IVP SCH (21:00)
[2022-01-14] VITALS (7 sets, daily range): BP systolic 106–137; BP diastolic 60–70
[2022-01-14] MEDS ORDERED: MAG SULF 2000 MG/WATER PREMIX 50 ML IV ONE (00:25)
[2022-01-14] MEDS: MENTHOL/ZINC OXIDE 113 GM TUBE TP SCH ×2 (01:00→13:06)
--- NOTE | 2022-01-14 01:08 | NUR ---
PATIENT STILL WILL LOWER RECTAL BLEED PATIENTS H/H 7.2 WANTS PATIENT TO GET 1 UN[address] TAVARES AT 2019 STATED TO GIVE THE BLOOD AND HE WILL SIGN CONSENT IN A.M. I GOT CONSENT CALLED PATIENT BROTHER HE CONSENT TO PATIENT TO HAVE BLOOD AT 2129. TWO NURSE WITNESS AT 2129 AND SIGN CONSENT CALLED COUNTERSINKER BALANCE SCREW HOLE TO LET HER KNOW WILL SIGN CONSENT IN A.M AND THAT HE WANT PATIENT TO GET 1 UNIT OF PRBC TONITE H/H 7.2. SUPER STATED TO ME SHE WOULD CALL LAB TO LET THEM KNOW THAT DR. TAVARES WILL SIGNS CONSENT IN A.M. BLOOD STARTED AT 2134 END AT 5 NO BLOOD REACTION NOTED TEMP 98.7. BLOOD BANK # [id number]. PATIENT RECEIVED MAG. 2000MG AT 0030. PATIENT HAS LARGE DARK LIQ. STOOL. AROUND 2200. LAB TO DRAW AT 0300 DUE TO BLOOD GIVEN.
[2022-01-14 03:18] LABS: BASOPHILS # (AUTO) 0.1 K/uL (0.00-0.22); BASOPHILS % (AUTO) 0.8 % (0.0-2.0); EOSINOPHILS # (AUTO) 0.5 K/uL (0-0.4); EOSINOPHILS % (AUTO) 3.7 % (0.0-4.0); HEMATOCRIT 24.3 % (36-52); HEMOGLOBIN 8.2 g/dL (12.0-18.0); LYMPHOCYTES # (AUTO) 1.8 K/uL (2.0-11.5); LYMPHOCYTES % (AUTO) 12.8 % (20.5-51.1); MEAN CORPUSCULAR HEMOGLOBIN 28 pg (27-31); MEAN CORPUSCULAR HGB CONC 34 g/dL (33-37); MEAN CORPUSCULAR VOLUME 83.6 fL (80-94); MONOCYTES # (AUTO) 0.7 K/uL (0.8-1.0); MONOCYTES % (AUTO) 5.1 % (1.7-9.3); NEUTROPHILS # (AUTO) 10.9 K/uL (1.8-7.7); NEUTROPHILS % (AUTO) 77.6 % (42.2-75.2); PLATELET COUNT (AUTO) 209 K/uL (140-450); RED BLOOD CELL COUNT(AUTO) 2.91 MIL/uL (4.20-6.10); RED CELL DISTRIBUTION WIDTH 17.4 % (11.6-13.7); WHITE BLOOD COUNT (AUTO) 14.1 K/uL (4.8-10.8)
[2022-01-14 03:34] LABS: ANION GAP 14.7 (8-16); CARBON DIOXIDE 23.6 mmol/L (21-32); POTASSIUM 3.3 mmol/L (3.5-5.1)
[2022-01-14 03:43] LABS: CREATININE 5.2 mg/dL (0.6-1.3)
[2022-01-14] MEDS: PIPERACILLIN/TAZOBACTAM 2.25 GM in DEXTROSE 5% 50 ML IV SCH ×6 (06:00→23:51)
[2022-01-14] MEDS: MIDODRINE 5 MG TAB PO SCH (06:17)
--- NOTE | 2022-01-14 06:18 | NUR ---
ML 2 AMPS NA BICARB AT 0600 HELD PROAMATINE PATIENT APPEARS AT RISK FOR SWALLOWING, . ML SMITH 2.25GM 0600.
--- NOTE | 2022-01-14 07:25 | NUR ---
RECEIVED REPORT FROM BEEF [employer] MANAGER NURSE FOR CONTINUITY OF CARE. PT AWAKE IN BED. BREATHING SYMMETRICAL ON ROOM AIR. FLACC O. WITH COTY PICC LINE 2 LUMEN RUNNING SODIUM BICARB AT 50CC/HR. PER REPORT PT HAD EPISODE OF BLOODY EMESIS AND STOOL YESTERDAY, WILL MONITOR FOR FURTHER EPISODES. ALSO WAS GIVEN 1PRBC LAST NIGHT. MONTEMAYOR CATHETER INTACT AND PATENT DRAINING YELLOW URINE ON GRAVITY. CALL LIGHT WITHIN REACH. ALL SAFETY MEASURES IN PLACE.
[2022-01-14] MEDS: PANTOPRAZOLE 40 MG INJ VIAL IVP SCH (08:25)
[2022-01-14] MEDS: FUROSEMIDE 20 MG/2 ML VIAL IVP SCH ×2 (08:31→21:03)
--- NOTE | 2022-01-14 08:41 | NUR ---
SCHEDULED AM MEDICATION GIVEN ORDERED.
[2022-01-14] MEDS ORDERED: POTASSIUM CHLORIDE 20% 40 MEQ/15 ML UDC PO PRN (08:50)
[2022-01-14] MEDS ORDERED: POTASSIUM CHL 20 MEQ / DEXT 5% 1,000 ML IV ONE (09:15)
[2022-01-14 09:34] LABS: HEMATOCRIT 29.5 % (36-52); HEMOGLOBIN 9.6 g/dL (12.0-18.0)
--- NOTE | 2022-01-14 11:55 | NUR ---
PER REPORT PT HAD EPISODE OF BLOODY EMESIS AND BLOODY STOOL YESTERDAY, NOTED PT WITH BLACK STOOL THIS MORNING. PT DOESN'T HAVE CONSULT WITH GI, OBTAINED ORDER FOR GI CONSULT. ALSO ORDERED TO D/C HEPARIN AND ASPIRIN AND ORDER FOR OCCULT BLOOD. Addendum: 01/14/22 at 1211 by Fatou Sanchez RN PT ALREADY HAS OCCULT BLOOD DONE WITH POSITIVE RESULT.
--- NOTE | 2022-01-14 12:11 | NUR ---
LEFT MESSAGE TO DR ANDERSON REGARDING CONSULT ORDER.
[2022-01-14] MEDS ORDERED: NACL 0.9% IVP SCH (13:00)
[2022-01-14] MEDS: PANTOPRAZOLE 80 MG in NACL 0.9% 100 ML IVP SCH ×2 (13:00→21:03)
[2022-01-14] MEDS ORDERED: PANTOPRAZOLE IVP SCH (13:00)
--- NOTE | 2022-01-14 13:59 | NUR ---
BROTHER JESSICA REQUESTING TO CHANGE DIET TO PUREE, PT ON MECHANICAL SOFT GROUND PER BROTHER PT POCKETING FOOD. DR SOLOMON MADE AWARE WITH ORDER FOR NPO AND SWALLOW EVAL.
--- NOTE | 2022-01-14 14:30 | NUR ---
PT SEEN BY DR HADDAD, CONSULTING DIETIST WITH ORDER TO DC SODIUM BICARB AND START ON D5W 65CC/HR X 2 BAGS.
[2022-01-14] MEDS: DEXTROSE 5% 1,000 ML IV SCH (14:46)
--- NOTE | 2022-01-14 16:45 | NUR ---
PT ASLEEP IN BED. BREATHING SYMMETRICAL. NO EPISODE OF BLOODY EMESIS DURING THIS SHIFT, NOTED WITH BLACK BOWEL MOVEMENT. WILL CONTINUE TO MONITOR.
--- NOTE | 2022-01-14 19:20 | NUR ---
ENDORSED PT TO SUPPRESSION CREW LEADER NURSE.
[2022-01-14] MEDS: carvediloL 3.125 MG TAB PO SCH (21:03)
[2022-01-14] MEDS: HYDROcodone/APAP 7.5/325 MG 1 TAB PO PRN (23:58)
[2022-01-15] VITALS: BP 129/73
--- NOTE | 2022-01-15 02:06 | NUR ---
PERINEAL CARE, WOUND CARE, MONTEMAYOR CATHETER CARE AND REPOSITIONING WITH ELIESER WORKMAN.
[2022-01-15 04:00] VITALS: BP 105/83
[2022-01-15] MEDS: DEXTROSE 5% 1,000 ML IV SCH (04:48)
[2022-01-15] MEDS: PIPERACILLIN/TAZOBACTAM 2.25 GM in DEXTROSE 5% 50 ML IV SCH ×3 (05:56→17:17)
[2022-01-15 06:16] LABS: ANION GAP 15.6 (8-16); CARBON DIOXIDE 21.9 mmol/L (21-32); POTASSIUM 3.5 mmol/L (3.5-5.1)
[2022-01-15 06:17] LABS: CREATININE 5.1 mg/dL (0.6-1.3)
[2022-01-15 06:35] LABS: BASOPHILS # (AUTO) 0.1 K/uL (0.00-0.22); BASOPHILS % (AUTO) 0.4 % (0.0-2.0); EOSINOPHILS # (AUTO) 0.7 K/uL (0-0.4); HEMATOCRIT 25.5 % (36-52); HEMOGLOBIN 8.5 g/dL (12.0-18.0); LYMPHOCYTES # (AUTO) 1.6 K/uL (2.0-11.5); LYMPHOCYTES % (AUTO) 12.4 % (20.5-51.1); MEAN CORPUSCULAR HEMOGLOBIN 28 pg (27-31); MEAN CORPUSCULAR HGB CONC 33 g/dL (33-37); MEAN CORPUSCULAR VOLUME 83.6 fL (80-94); MONOCYTES # (AUTO) 0.5 K/uL (0.8-1.0); NEUTROPHILS # (AUTO) 10.3 K/uL (1.8-7.7); NEUTROPHILS % (AUTO) 78.2 % (42.2-75.2); PLATELET COUNT (AUTO) 254 K/uL (140-450); RED BLOOD CELL COUNT(AUTO) 3.05 MIL/uL (4.20-6.10); RED CELL DISTRIBUTION WIDTH 17.4 % (11.6-13.7); WHITE BLOOD COUNT (AUTO) 13.2 K/uL (4.8-10.8)
[2022-01-15 06:38] LABS: ALBUMIN 1.4 g/dL (3.4-5.0); BILIRUBIN,DIRECT 0.1 mg/dL (0.0-0.3); TOTAL BILIRUBIN 0.4 mg/dL (0.0-1.0)
--- NOTE | 2022-01-15 07:02 | NUR ---
HANDOFF WITH FRANCIS LEACH RN. FABIANO JACK RN
--- NOTE | 2022-01-15 07:10 | NUR ---
RECEIVED REPORT FROM TEMPERING OVEN OPERATOR NURSE FOR CONTINUITY OF CARE. PER REPORT, NO EPISODE OF BLOODY EMESIS LAST NIGHT, BOWEL MOVEMENT APPEARS TO BE DARK. PT ASLEEP IN BED. BREATHING SYMMETRICAL ON ROOM AIR. FLACC O. COTY PICC LINE DOUBLE LUMEN RUNNING D5W AT 65CCCC/HR AND PROTONIX AT 10CC/HR. MONTEMAYOR CATHETER INTACT AND PATENT DRAINING YELLOW URINE. CALL LIGHT PLACED WITHIN REACH. ALL SAFETY MEASURES IN PLACE.
[2022-01-15 08:00] VITALS: BP 124/73
[2022-01-15] MEDS: ATORVASTATIN 20 MG TAB PO SCH (09:00)
[2022-01-15] MEDS: ALGINATE DRESSING MC SCH (09:00)
[2022-01-15] MEDS: carvediloL 3.125 MG TAB PO SCH ×2 (09:00→20:30)
[2022-01-15] MEDS: PANTOPRAZOLE 80 MG in NACL 0.9% 100 ML IVP SCH ×2 (09:00→22:12)
[2022-01-15] MEDS: FUROSEMIDE 20 MG/2 ML VIAL IVP SCH ×2 (09:06→20:30)
--- NOTE | 2022-01-15 09:10 | NUR ---
PT SEEN BY DR ANDERSON
--- NOTE | 2022-01-15 11:17 | NUR ---
NEW ORDER TO INSERT PICC LINE, PT ALREADY HAS COTY PICC LINE IN PLACE, DOUBLE LUMEN. DR SOLOMON AT STATION AND MADE AWARE, TO DC NEW INSERT PICC LINE ORDER.
--- NOTE | 2022-01-15 11:35 | NUR ---
AM PO MEDICATIONS NOTED GIVEN, PT CURRENTLY NPO, PENDING SWALLOW EVAL. Addendum: 01/15/22 at 1731 by Fatou Sanchez RN CORRECTION *NOT GIVEN
[2022-01-15 12:00] VITALS: BP 136/75
[2022-01-15] MEDS: MENTHOL/ZINC OXIDE 113 GM TUBE TP SCH ×2 (13:00)
--- NOTE | 2022-01-15 13:57 | NUR ---
SEEN BY ST FOR EVAL WITH RECOMMENDATION FOR PUREE DIET, NEKTAR THINK LIQUID. DR SOLOMON MADE AWARE.
--- NOTE | 2022-01-15 14:53 | NUR ---
01/15/22 RD FOLLOW UP COMPLETED PLEASE REFER TO NUTRITION ASSESSMENT UNDER CARE ACTIVITY FOR ESTIMATED NUTRITIONAL NEEDS. 1. CONTINUE PUREE DIET WITH NECTAR THICK LIQUIDS TOLERATED -IF PO INTAKE IMPROVES, RECOMMEND RENAL PUREE DIET WITH NECTAR THICK LIQUIDS -IF PT STARTS ON DIALYSIS, RECOMMEND DEVI BID PER RD PROTOCOL 2. CONTINUE NEPRO BID WITH THICKENER PER RD PROTOCOL 3. MONITOR NUTRITION-RELATED LABS AND PO INTAKE 4. RD TO FOLLOW-UP 2-3 DAYS, HIGH RISK CHAVA MCGOWAN RD
--- NOTE | 2022-01-15 15:15 | NUR ---
PT SEEN BY DR HADDAD, CONSULTING CRYPTOLOGIC TECHNICIAN TECHNICAL WITH ORDER FOR 1/2 NS AT 65CC/HR TO START AFTER INFUSION OF 2ND BAG OF D5W. BUN AND CREATININE STILL ELEVATED BUT TRENDING DOWN.
[2022-01-15 16:00] VITALS: BP 137/69
--- NOTE | 2022-01-15 16:06 | NUR ---
DC PLANNING PATIENT IS A 66-YEAR OLD MALE ADMITTED TO THE [facility]/ED DUE TO INCREASED CONFUSION AND TACHYCARDIA PATIENT IS BEDBOUND WITH HX OF CVA. ITALO MET WITH PATIENT AND HIS BROTHER JESSICA MICHELLE AT BEDSIDE TO DISCUSS AND GATHER HIS COLLATERAL INFORMATION, PATIENT AND HIS BROTHER ARE [place] SPEAKING ONLY. DURING THE VISIT PATIENT WAS UNABLE TO PROVIDE HIS OWN INFORMATION HOWEVER HIS BROTHER JESSICA PROVIDED WITH HIS BACKGROUND. PER PATIENT'S BROTHER REPORTED THAT PATIENT WAS LIVING WITH FAMILY IN [facility] IN 09/14/2022. DURING THAT TIME HE HAD A STROKE THAT SEND HIM TO [facility] IN [facility] FROM THERE AFTER 2 MONTHS OF HOSPITALIZATION PATIENT WAS SEND TO [facility] DUE TO HIS LIMITATIONS WITH HIS MEDICAL. UNTIL RECENTLY ABOUT 4 WEEKS AGO. PATIENT'S HEALTH DECLINED AND WAS SEND TO [facility]. PATIENT HAS PLENTY OF FAMILY SUPPORT HOWEVER; NO ONE IS ABLE TO CARE FOR HIM DUE TO HIS NEW LEVEL OF NEEDS THEREFORE; HE WILL BE RETURNING TO [facility] WHEN HE IS READY FOR DC FROM [facility]. PATIENT HAS ADVANCE DIRECTIVES IN PLACE AND HAS HIS BROTHER JESSICA PATIENT'S MEDICAL DECISION MAKER. PATIENT HAS ALREADY DONE HIS ADVANCE DIRECTIVES THEREFORE PATIENT DECLINED A.D. INF. PACKET PROVIDED BY ITALO. PATIENT REPORTED NOT HAVING ANY ISSUES GETTING OR TAKING HIS MEDICATIONS AND HAS A WHEELCHAIR HIS ONLY DME. PATIENT WILL CONTINUE TX. UNTIL READY TO GO BACK TO [facility] AT [place]. SW WILL FOLLOW UP NEEDED
[2022-01-15] MEDS: FERROUS SULFATE 325 MG TABEC PO SCH (17:06)
--- NOTE | 2022-01-15 17:32 | NUR ---
PT AWAKE IN BED, YORUBA SPEAKING. BREATHING SYMMETRICAL ON ROOM AIR. NO EPISODE OF BLOODY EMESIS NOTED DURING THIS SHIFT SO FAR, BOWEL MOVEMENT SOFT, NO BLOOD NOTED.
--- NOTE | 2022-01-15 18:43 | NUR ---
ASSISTED PT WITH DINNER, PT TOLERATED PUREE DIET WELL. ASPIRATION PRECAUTIONS OBSERVED. PT ATE 50% OF DINNER
--- NOTE | 2022-01-15 19:25 | NUR ---
ENDORSED PT TO BLAST FURNACE CHECKER NURSE.
[2022-01-15 20:00] VITALS: BP 135/71
[2022-01-15] MEDS: NACL 0.45% 1,000 ML IV SCH (20:28)
[2022-01-15] MEDS ORDERED: PANTOPRAZOLE 40 MG INJ VIAL ONE (22:01)
[2022-01-16] VITALS: BP 112/75
[2022-01-16] MEDS: PIPERACILLIN/TAZOBACTAM 2.25 GM in DEXTROSE 5% 50 ML IV SCH (00:12)
[2022-01-16] MEDS: MENTHOL/ZINC OXIDE 113 GM TUBE TP SCH ×2 (00:12→13:56)
[2022-01-16 04:00] VITALS: BP 122/65
[2022-01-16 05:44] LABS: ANION GAP 13.3 (8-16); CARBON DIOXIDE 23.9 mmol/L (21-32); POTASSIUM 3.2 mmol/L (3.5-5.1)
[2022-01-16 05:46] LABS: CREATININE 4.7 mg/dL (0.6-1.3)
[2022-01-16 06:00] LABS: BASOPHILS # (AUTO) 0.1 K/uL (0.00-0.22); BASOPHILS % (AUTO) 0.6 % (0.0-2.0); EOSINOPHILS # (AUTO) 0.5 K/uL (0-0.4); EOSINOPHILS % (AUTO) 3.7 % (0.0-4.0); HEMATOCRIT 25.2 % (36-52); HEMOGLOBIN 8.2 g/dL (12.0-18.0); LYMPHOCYTES # (AUTO) 1.5 K/uL (2.0-11.5); LYMPHOCYTES % (AUTO) 11.5 % (20.5-51.1); MEAN CORPUSCULAR HEMOGLOBIN 27 pg (27-31); MEAN CORPUSCULAR HGB CONC 33 g/dL (33-37); MEAN CORPUSCULAR VOLUME 83.5 fL (80-94); MONOCYTES # (AUTO) 0.7 K/uL (0.8-1.0); MONOCYTES % (AUTO) 5.2 % (1.7-9.3); PLATELET COUNT (AUTO) 258 K/uL (140-450); RED BLOOD CELL COUNT(AUTO) 3.02 MIL/uL (4.20-6.10); RED CELL DISTRIBUTION WIDTH 17.5 % (11.6-13.7); WHITE BLOOD COUNT (AUTO) 12.7 K/uL (4.8-10.8)
--- NOTE | 2022-01-16 07:04 | NUR ---
HANDOFF WITH JESSI LOYA. FABIANO JACK RN
--- NOTE | 2022-01-16 07:20 | NUR ---
RECEIVED BEDSIDE REPORT FROM QUALITY ASSURANCE MONITOR BODY NURSE FOR CONTINUITY OF CARE. PT IS AOX2 AND NO S/S OF DISTRESS NOTED. BREATHING IS EVEN AND UNLABORED. DENIES PAIN. ON RA. PT IS STABLE.
[2022-01-16 08:00] VITALS: BP 121/71
[2022-01-16] MEDS: FERROUS SULFATE 325 MG TABEC PO SCH ×2 (08:00→17:00)
[2022-01-16] MEDS: ATORVASTATIN 20 MG TAB PO SCH (09:00)
[2022-01-16] MEDS ORDERED: POTASSIUM CHL 40 MEQ/ D5-1/2NS 1,000 ML IV SCH (09:00)
[2022-01-16] MEDS: FUROSEMIDE 20 MG/2 ML VIAL IVP SCH (09:00)
[2022-01-16] MEDS: PANTOPRAZOLE 80 MG in NACL 0.9% 100 ML IVP SCH ×2 (09:00→21:29)
[2022-01-16] MEDS: carvediloL 3.125 MG TAB PO SCH ×2 (09:00→21:16)
--- NOTE | 2022-01-16 10:57 | NUR ---
WOUND CARE RE-EVALUATION NOTE: SKIN ASSESSMENT DONE WITH PHYSICAL THERAPIST BRIANA'S ASSIST. POC DISCUSSED WITH PT. IN TURKMEN WITH BRIANA'S TRANSLATION. PT. VERBALIZES UNDERSTANDING. SACRAL WOUND NO IMPROVING, ALLAN WOUND SKIN MAD WITH SOME IMPROVEMENT.WILL CONTINUE CURRENT TX. -SOFTWARE LICENSING ANALYST RELATED PRESSURE INJURY TO LEFT KNEE BLANCHABLE REDNESS 2X7CM SKIN INTACT, LEFT STEPHEN 13X2 CM DTI, TODAY WITH LIGHT PURPLE COLOR AND SKIN INTACT -DTI LEFT MEDIAL HEEL 3X4CM, SKIN INTACT -PRESSURE INJURY STAGE 4 SACRALCOCCYX INFECTED WOUND [id number] UNDERMINING 3 OCLOCK DIRECTION 2CM, WOUND BED 40% PALE PINK TISSUE, 60 % MIRELES/BLACK SLOUGH TISSUE WITH MODERATE AMOUNT SEROSANGUINEOUS BLEEDING, MILD ODOR, WOUND EDGE WELL DEFINED, WITH ALLAN-WOUND SKIN DTI TO 3 OCLOCK DIRECTION 2X3CM, SEVERE MOISTURE ASSOCIATED DERMATITIS WITH DENUDED SKIN EXTENDED TO ALLAN-ANAL AND POSTERIOR MEDIAL THIGHS AND FURTHER DAMAGE INDICATED .
--- NOTE | 2022-01-16 11:00 | NUR ---
PT IS AOX2 AND NO S/S OF DISTRESS NOTED. BREATHING IS EVEN AND UNLABORED. DENIES PAIN. ON RA. PT IS STABLE.
[2022-01-16] MEDS: NACL 0.45% 1,000 ML IV SCH (11:24)
[2022-01-16 12:00] VITALS: BP 129/69
--- NOTE | 2022-01-16 15:00 | NUR ---
TAKEN FOR BONE SCAN. PT IS AOX2 AND NO S/S OF DISTRESS NOTED. BREATHING IS EVEN AND UNLABORED. DENIES PAIN. ON RA. PT IS STABLE.
[2022-01-16 16:00] VITALS: BP 92/47
--- NOTE | 2022-01-16 18:30 | NUR ---
TAKEN FOR THE SECOND PART OF THE BONE SCAN. PT IS AOX2 AND NO S/S OF DISTRESS NOTED. BREATHING IS EVEN AND UNLABORED. DENIES PAIN. ON RA. PT IS STABLE.
--- NOTE | 2022-01-16 19:20 | NUR ---
PT ENDORSED TO BLOWER FEEDER DYED RAW STOCK NURSE FOR CONTINUITY OF CARE. POC DISCUSSED.
[2022-01-16 20:00] VITALS: BP 123/58
[2022-01-16] MEDS ORDERED: PANTOPRAZOLE 40 MG INJ VIAL ONE (21:20)
[2022-01-17] VITALS: BP 116/60
[2022-01-17] MEDS: NACL 0.45% 1,000 ML IV SCH (01:31)
[2022-01-17] MEDS: MENTHOL/ZINC OXIDE 113 GM TUBE TP SCH (01:33)
[2022-01-17 04:00] VITALS: BP 124/72
--- NOTE | 2022-01-17 07:00 | NUR ---
HANDOFF WITH JESSI LOYA. FABIANO JACK RN
--- NOTE | 2022-01-17 07:15 | NUR ---
PT IS AOX2 AND NO S/S OF DISTRESS NOTED. BREATHING IS EVEN AND UNLABORED. DENIES PAIN. ON RA. PT IS STABLE.
[2022-01-17] MEDS: carvediloL 3.125 MG TAB PO SCH (09:00)
[2022-01-17] MEDS ORDERED: FUROSEMIDE 20 MG/2 ML VIAL IVP SCH (09:00)
[2022-01-17] MEDS: ATORVASTATIN 20 MG TAB PO SCH (09:54)
[2022-01-17] MEDS: FERROUS SULFATE 325 MG TABEC PO SCH (09:54)
[2022-01-17] MEDS: PANTOPRAZOLE 80 MG in NACL 0.9% 100 ML IVP SCH (09:54)
[2022-01-17] MEDS ORDERED: FERR325E14 PO (10:35)
[2022-01-17] MEDS ORDERED: IV Zosyn IV (10:35)
[2022-01-17] MEDS ORDERED: IV Vancomycin IV (10:35)
[2022-01-17] MEDS ORDERED: ATOR40TA PO (10:35)
[2022-01-17] MEDS ORDERED: CARV3.12 PO (10:35)
[2022-01-17 14:24] VITALS: BP 108/60
== END 2022-01-17 15:00 | DRG 720 ==
LOC: MED 10:36 → MIC 13:25 → MTU 01-12 04:38
PROVIDERS: ADMIT Family Medicine; ATTEND Family Medicine
PROC: 0JB70ZZ Excision of Back Subcutaneous Tissue and Fascia, Open Approach (ICD-10-PCS; principal; 2022-01-08)
PROC: 02HV33Z Insertion of Infusion Device into Superior Vena Cava, Percutaneous Approach (ICD-10-PCS; 2022-01-08)
PROC: B548ZZA Ultrasonography of Superior Vena Cava, Guidance (ICD-10-PCS; 2022-01-08)
PROC: 30233N1 Transfusion of Nonautologous Red Blood Cells into Peripheral Vein, Percutaneous Approach (ICD-10-PCS; 2022-01-13)
DX: A41.52 Sepsis due to Pseudomonas (principal); N17.0 Acute kidney failure with tubular necrosis; R65.21 Severe sepsis with septic shock; G93.41 Metabolic encephalopathy; E43 Unspecified severe protein-calorie malnutrition; J15.1 Pneumonia due to Pseudomonas; L89.154 Pressure ulcer of sacral region, stage 4; D69.6 Thrombocytopenia, unspecified; E87.0 Hyperosmolality and hypernatremia; I48.20 Chronic atrial fibrillation, unspecified; D63.8 Anemia in other chronic diseases classified elsewhere; E83.39 Other disorders of phosphorus metabolism; L03.312 Cellulitis of back [any part except buttock and flank]; N39.0 Urinary tract infection, site not specified; E78.5 Hyperlipidemia, unspecified; I25.5 Ischemic cardiomyopathy; I25.10 Atherosclerotic heart disease of native coronary artery without angina pectoris; I12.9 Hypertensive chronic kidney disease with stage 1 through stage 4 chronic kidney disease, or unspecified chronic kidney disease; N18.9 Chronic kidney disease, unspecified; I96 Gangrene, not elsewhere classified; Z20.822 Contact with and (suspected) exposure to COVID-19; Z95.1 Presence of aortocoronary bypass graft; Z79.01 Long term (current) use of anticoagulants; Z74.01 Bed confinement status; I69.354 Hemiplegia and hemiparesis following cerebral infarction affecting left non-dominant side; Z68.28 Body mass index [BMI] 28.0-28.9, adult
CPT/HCPCS: 36415; 36430; 70450; 71045; 74150; 76770; 78315; 80048; 80053; 80076; 80202; 81001; 82150; 82272; 82550; 82553; 82948; 83036; 83605; 83690; 83735; 83874; 83880; 84100; 84436; 84439; 84443; 84479; 84484; 85018; 85025; 85610; 85730; 86886; 86900; 86901; 86920; 87040; 87070; 87081; 87086; 87186; 87205; 92526; 93005; 93925; 96365; 96375; 96376; 97110; 97112; 97163-GP; 97530; 99291; C9113; J0153; J0278; J0696; J1644; J1940; J2001; J2543; J2765; J3370; J3475; J3480; J3490; J7060; P9016; Q0092

== ENCOUNTER 2022-01-29 13:51 | Inpatient (IN) | payer MEDICAID ==
[~2022-01-29] VITALS: Ht 167.6 cm; Wt 72.6 kg
[~2022-01-29 13:51] MED LIST: ATOR40TA PO; CARV3.12 PO; FERR325E14 PO; IV Vancomycin IV; IV Zosyn IV
--- NOTE | 2022-01-29 13:53 | NUR ---
BIBA BLS TO ER BED 8
[2022-01-29 13:54] VITALS: BP 110/59
--- NOTE | 2022-01-29 14:00 | NUR ---
67 y/o male rikki from [facility], pt was brought in for sepsis work up requested per md jones. reported that pt was altered, normally a&ox3, pt upon arrival is citizen of [place] speaking and a&ox2 to name and place. skin is pink/cool/dry with abrasion/skin tear to right upper arm, possible stage 4 on sacral area (new dressing applied), with diaper rash. unable to ambulate. lungs clear bl, heart rate even and regular. pt baseline incontinent, pt came in with benavides, replaced at this time. pt denies any fever, cp, sob, or cough at this time. pt states he has pain on his lower back at this time. patient positioned for comfort. hob elevated. bed down. ermd made aware of pt. pmh: cva, htn nka med: see med list
--- NOTE | 2022-01-29 14:09 | NUR ---
Spoke to JESSI Vergara at [facility] and recieved report.
--- NOTE | 2022-01-29 14:40 | NUR ---
Dr. Delgado at bedside evaluating patient.
[2022-01-29] MEDS ORDERED: NACL 0.9% 2,000 ML IV ONE ×2 (15:00→17:00)
[2022-01-29] MEDS ORDERED: PIPERACILLIN/TAZOBACTAM 4.5 GM in DEXTROSE 5% 100 ML IV ONE (15:00)
--- NOTE | 2022-01-29 15:07 | NUR ---
UNIVERSITY PRESIDENT AT PT BEDSIDE.
--- NOTE | 2022-01-29 15:12 | NUR ---
CUSTOMER SERVICE TRAINER AT PT BEDSIDE.
[2022-01-29 15:38] LABS: BASOPHILS % (AUTO) 0.4 % (0.0-2.0); EOSINOPHILS # (AUTO) 0.6 K/uL (0-0.4); EOSINOPHILS % (AUTO) 8.4 % (0.0-4.0); HEMATOCRIT 29.2 % (36-52); HEMOGLOBIN 9.4 g/dL (12.0-18.0); LYMPHOCYTES # (AUTO) 2.5 K/uL (2.0-11.5); LYMPHOCYTES % (AUTO) 33.2 % (20.5-51.1); MEAN CORPUSCULAR HEMOGLOBIN 27 pg (27-31); MEAN CORPUSCULAR HGB CONC 32 g/dL (33-37); MONOCYTES # (AUTO) 0.6 K/uL (0.8-1.0); MONOCYTES % (AUTO) 8.2 % (1.7-9.3); NEUTROPHILS # (AUTO) 3.8 K/uL (1.8-7.7); NEUTROPHILS % (AUTO) 49.8 % (42.2-75.2); PLATELET COUNT (AUTO) 645 K/uL (140-450); RED BLOOD CELL COUNT(AUTO) 3.44 MIL/uL (4.20-6.10); WHITE BLOOD COUNT (AUTO) 7.7 K/uL (4.8-10.8)
--- NOTE | 2022-01-29 15:38 | NUR ---
pt being taken to ct
[2022-01-29 16:15] LABS: APPEARANCE,URINE CLEAR (CLEAR); BILIRUBIN,URINE NEGATIVE (NEGATIVE); BLOOD, URINE TRACE-I (NEGATIVE); COLOR,URINE YELLOW (YELLOW); LEUKOCYTE ESTERASE ,URINE 3+ (NEGATIVE); NITRITE, URINE NEGATIVE (NEGATIVE); UGLUCOSE NEGATIVE (NEGATIVE)
[2022-01-29 16:32] LABS: ALBUMIN 1.6 g/dL (3.4-5.0); ANION GAP 11.8 (8-16); ASPARTATE AMINOTRANSFERASE 36 U/L (15-37); CARBON DIOXIDE 24.4 mmol/L (21-32); CHLORIDE 117 mmol/L (98-107); CREATININE 2.4 mg/dL (0.6-1.3); GFR ARICAN-AMERICAN 35 mL/min (>90); GLUCOSE 98 mg/dL (74-106); POTASSIUM 3.2 mmol/L (3.5-5.1); SODIUM SERUM 150 mmol/L (136-145); TOTAL BILIRUBIN 0.3 mg/dL (0.0-1.0); UREA NITROGEN, BLOOD 18 mg/dL (7-18)
[2022-01-29 16:33] LABS: SALICYLATE < 2.8 mg/dL (2.8-20.0)
[2022-01-29] MEDS ORDERED: NACL 0.9% 1,000 ML IV SCH (17:05)
--- NOTE | 2022-01-29 17:34 | NUR ---
# 16 FR Fleming catheter with 10 ml utilizing sterile technique. Immediate return of 100 ml yellow, clear urine noted. Bedside drainage bag placed below level of bladder. Urine sample collected and sent to lab. Pt tolerated procedure.
[2022-01-29] MEDS ORDERED: SENN-74 PO (17:37)
[2022-01-29] MEDS ORDERED: ASPI81CT95 PO (17:37)
[2022-01-29] MEDS ORDERED: OMEP-277 PO (17:37)
[2022-01-29] MEDS ORDERED: ASCO-5 PO (17:37)
[2022-01-29] MEDS ORDERED: PETR113O TP (17:37)
[2022-01-29] MEDS ORDERED: PRAV40TA3 PO (17:37)
[2022-01-29] MEDS ORDERED: ACET-2619 PO (17:37)
[2022-01-29] MEDS ORDERED: MIRABULK PO (17:37)
[2022-01-29 17:39] LABS: WBC,URINE >25 (MANY) /HPF (0-5)
[2022-01-29] MEDS ORDERED: cefTRIAXone 1,000 MG VIAL ONE (17:56)
[2022-01-29 18:30] VITALS: BP 149/83
--- NOTE | 2022-01-29 18:30 | NUR ---
ADMITTED PT FROM ED, BEDSIDE REPORT GIVEN BY LISHA BOWEN. PT AWAKE, ABLE TO MAKE NEEDS KNOWN IN STATELESS WITH PERIODS OF CONFUSION. BREATHING SYMMETRICAL ON ROOM AIR. NO C/O PAIN AT THIS TIME. MONTEMAYOR CATHETER IN PLACE, INSERTED 01/29/22 AT ED, PER REPORT PT CAME FROM SNF WITH F/C. WITH RFA 22G INFUSING ROCEPHIN 1GM CONTINUING FROM ER. NOTED WITH EDEMATOUS BILATERAL FOOT. TELEMONITOR IN PLACE. CALL LIGHT WITHIN REACH. BED ON LOW POSITION, BRAKES ON. ALL SAFETY MEASURES IN PLACE. [id number] PR106 RR19 TEMP97.6 O2 SAT ON ROOM AIR 94%
--- NOTE | 2022-01-29 18:40 | NUR ---
Patient will be admitted to care of DR. SOLOMON. Admited to TELEMETRY. Will go to room 123-B. Belongings list completed. Report to JESSI BLANCO.
[2022-01-29 19:09] LABS: PROTHROMBIN TIME 11.3 secs (10.8-13.4)
[2022-01-29] MEDS: NACL 0.45% 1,000 ML IV SCH (19:27)
--- NOTE | 2022-01-29 19:35 | NUR ---
ENDORSED PT TO TEAM SPORTS SALES ASSOCIATE NURSE, IN STABLE CONDITION
--- NOTE | 2022-01-29 19:40 | NUR ---
RECEIVED REPORT FROM RN DAYSHIFT NURSE AT BEDSIDE FOR CONTINUITY OF CARE, PT LYING IN BED NO S/S OF PAIN OR DISTRESS NOTED. PT HAS A 22G ON THE RIGHT F/A RUNNING 1/2 NS AT 50 MLS/HR. PT ALSO HAS A STAGE 4 SACRAL WOUND. NOTED WITH SCABS ON LOWER AND UPPER LIMBS. PT ALSO HAS A MONTEMAYOR CATHETER IN PLACE. HE IS AOX2 AND CAN MAKE NEEDS KNOWN. ALL UNIVERSAL FALLS PRECAUTIONS IN PLACE.
[2022-01-29 20:00] VITALS: BP_SYST 149; BP_DIAS 83; BP_DIAS 86
--- NOTE | 2022-01-29 20:30 | NUR ---
PT IN BED NO S/S OF PAIN OR DISTRESS NOTED. V/S FOLLOWS: T 97.0 P 76 R 18 B/P 149/86 02 96% ON ROOM AIR. ALL FALLS PRECAUTIONS IN PLACE.
[2022-01-29 22:25] LABS: BARBITURATE, URINE NEGATIVE ng/ml (NEG <=200); BENZODIAZEPINE, URINE NEGATIVE ng/mL (NEG <=200); CANNABINOID, URINE NEGATIVE ng/mL (NEG <=50); COCAINE, URINE NEGATIVE ng/mL (NEG <=300); OPIATE, URINE NEGATIVE ng/mL (NEG <=2000); PHENCYCLIDINE SCREEN,URINE NEGATIVE ng/mL (NEG <=25)
[2022-01-29 22:30] LABS: ACETAMINOPHEN < 0.5 ug/ml (10-30)
--- NOTE | 2022-01-29 22:30 | NUR ---
NEW MONTEMAYOR CATHETER INSERTED DUE TO OLD ONE BEING TOO SHORT. PT TOLERATED WELL. URINE IS CLEAR
[2022-01-30] VITALS: BP 128/70
--- NOTE | 2022-01-30 | NUR ---
PT WAS TURNED AND REPOSITIONED IN BED, WOUND WAS MEASURED AND CLEANED NEW DRESSING PROVIDED. V/S FOLLOWS: T 97.1 P 105 R 20 B/P 128/70 02 95% ON ROOM AIR.
[2022-01-30] MEDS ORDERED: DOCUSATE SODIUM 100 MG GELCAP PO PRN (00:05)
[2022-01-30] MEDS ORDERED: ZOLPIDEM 5 MG TAB PO PRN (00:05)
[2022-01-30] MEDS ORDERED: ONDANSETRON 4 MG/2 ML VIAL IM/IVP PRN (00:05)
[2022-01-30] MEDS ORDERED: POTASSIUM CHLORIDE 10 MEQ TABER PO PRN (00:05)
[2022-01-30] MEDS ORDERED: MAG SULF 2000 MG/WATER PREMIX 50 ML IV PRN (00:05)
[2022-01-30] MEDS ORDERED: ACETAMINOPHEN 325 MG TAB PO PRN (00:05)
[2022-01-30] MEDS ORDERED: LORazepam 2 MG/ML VIAL IM/IVP PRN (00:05)
[2022-01-30] MEDS ORDERED: HYDROcodone/APAP 5/325 MG 1 TAB TAB PO PRN (00:05)
[2022-01-30 01:02] LABS: THYROID STIMULATING HORMONE 2.12 uIU/mL (0.34-3.74)
--- NOTE | 2022-01-30 02:00 | NUR ---
URINE COLLECTED AND SENT TO LAB FOR ORDERED TESTS.
[2022-01-30 04:00] VITALS: BP 105/62
[2022-01-30 04:37] LABS: BARBITURATE, URINE NEGATIVE ng/ml (NEG <=200); BENZODIAZEPINE, URINE NEGATIVE ng/mL (NEG <=200); CANNABINOID, URINE NEGATIVE ng/mL (NEG <=50); COCAINE, URINE NEGATIVE ng/mL (NEG <=300); OPIATE, URINE NEGATIVE ng/mL (NEG <=2000); PHENCYCLIDINE SCREEN,URINE NEGATIVE ng/mL (NEG <=25)
[2022-01-30 05:56] LABS: BASOPHILS # (AUTO) 0.1 K/uL (0.00-0.22); BASOPHILS % (AUTO) 1.3 % (0.0-2.0); EOSINOPHILS # (AUTO) 0.7 K/uL (0-0.4); EOSINOPHILS % (AUTO) 10.1 % (0.0-4.0); HEMATOCRIT 26.6 % (36-52); HEMOGLOBIN 8.7 g/dL (12.0-18.0); LYMPHOCYTES # (AUTO) 1.6 K/uL (2.0-11.5); LYMPHOCYTES % (AUTO) 22.7 % (20.5-51.1); MEAN CORPUSCULAR HEMOGLOBIN 28 pg (27-31); MEAN CORPUSCULAR HGB CONC 33 g/dL (33-37); MEAN CORPUSCULAR VOLUME 84.3 fL (80-94); MONOCYTES # (AUTO) 0.6 K/uL (0.8-1.0); MONOCYTES % (AUTO) 8.5 % (1.7-9.3); NEUTROPHILS # (AUTO) 4.2 K/uL (1.8-7.7); NEUTROPHILS % (AUTO) 57.4 % (42.2-75.2); PLATELET COUNT (AUTO) 583 K/uL (140-450); RED BLOOD CELL COUNT(AUTO) 3.16 MIL/uL (4.20-6.10); RED CELL DISTRIBUTION WIDTH 18.3 % (11.6-13.7); WHITE BLOOD COUNT (AUTO) 7.3 K/uL (4.8-10.8)
[2022-01-30 06:13] LABS: ANION GAP 12.7 (8-16); CARBON DIOXIDE 23.7 mmol/L (21-32); CREATININE 2.4 mg/dL (0.6-1.3); POTASSIUM 3.4 mmol/L (3.5-5.1)
[2022-01-30 06:27] LABS: CHOL/HDL RATIO 5.7 (1-4.5); PHOSPHORUS 4.2 mg/dL (2.5-4.9)
--- NOTE | 2022-01-30 06:33 | NUR ---
PT WAS K DUR FOR POTASSIUM COVERAGE. CURRENT K LEVEL IS 3.2. PT GIVEN 40 MEQ. WILL ENDORSE TO AM SHIFT. PT WAS TURNED AND REPOSITIONED IN BED. SACRAL DRESSING DRY AND INTACT. FLUIDS CONTINUE ORDERED AT 50 MLS/HR.
[2022-01-30 08:00] VITALS: BP 118/63
--- NOTE | 2022-01-30 08:00 | NUR ---
RECEIVED PATIENT LAYING IN BED AWAKE. PATIENT ALERT AND ORIENTED X2 ANGOLAN SPEAKING, PATIENT CHIEF COMPLAINT ABNORMAL LAB VALUES. DIAGNOSED WITH HYPONATREMIA AND UTI, PATIENT IS CURRENTLY TAKING ROCEPHIN. PATIENT LUNGS CLEAR AND BOWELS NORMAL ACTIVE. PATIENT WITH PITTING EDEMA ON HIS LEFT LOWER LEG, PATIENT WITH MONTEMAYOR CATHETER. PATIETN WITH A STAGE 4 PRESSURE ULCER ON SACRUM. PATEIN ELIO RESIDUAL LEFT SIDED WEAKNESS FROM A CVA. LEGS CONTRACTED AND LEFT ARM CONTRACTED. CALL LIGHT WITHIN REACH. BED AT LOWEST POSITION AND LOCKED, WILL CONTINUE TO MONITOR.
--- NOTE | 2022-01-30 08:13 | NUR ---
PATIENT HAS BEEN SCREENED AND CATEGORIZED HIGH NUTRITION RISK. PATIENT WILL BE SEEN WITHIN 1-2 DAYS OF ADMISSION. / RECEIVED CONSULT AND REFERRAL FOR PRESSURE INJURY CHAVA MCGOWAN RD
[2022-01-30] MEDS: carvediloL 3.125 MG TAB PO SCH ×2 (10:03→21:00)
[2022-01-30] MEDS: POLYETHYLENE GLYCOL 17 GM/PKT PO SCH (10:03)
[2022-01-30] MEDS: SENNA 8.6 MG TAB PO SCH (10:04)
[2022-01-30] MEDS: ASPIRIN 81 MG TAB.CHEW PO SCH (10:04)
[2022-01-30] MEDS: ASCORBIC ACID 500 MG TAB PO SCH ×2 (10:04→21:00)
[2022-01-30] MEDS: FERROUS SULFATE 325 MG TABEC PO SCH (10:04)
[2022-01-30] MEDS ORDERED: POTASSIUM CHLORIDE 10 MEQ TABER PO SCH (10:15)
[2022-01-30 12:00] VITALS: BP 136/83
--- NOTE | 2022-01-30 12:03 | NUR ---
WOUND CARE EVALUATION NOTES: SKIN ASSESSMENT DONE ON WITH PRIMARY RN ON THIS 66 Y/O PT. ADMITTED WITH LOW FRANCISCO SCALE AT HIGH RISK AND SACRALCOCCYX STAGE 4 PRESSURE INJURY. PT. IS AWAKE AND VERBALIZES NEEDS. PLAN OF CARE DISCUSSED WITH PRIMARY RN. INTEGUMENTARY: -GENERALIZED VITILIGO LIMBS AND TRUNK OF BODY -DTI LEFT MEDIAL HEEL 3X3CM, LIGHT MAROON COLOR, SKIN INTACT -PRESSURE INJURY STAGE 4 SACRALCOCCYX INFECTED WOUND [id number] UNDERMINING 10-3 OCLOCK DIRECTION WITH DEEPEST 6 CM TO 3OCLOCK, WOUND BED 90% PALE PINK TISSUE, 10 % SCATTERED YELLOW SLOUGH TISSUE WITH MODERATE AMOUNT SEROSANGUINEOUS, NO ODOR, WOUND EDGE WELL DEFINED, WITH ALLAN-WOUND SKIN SEVERE MOISTURE ASSOCIATED DERMATITIS PARTIAL THICKNESS LOSS TO 3 OCLOCK DIRECTION 1X1CM SUPERFICIAL DEPTH. ALLAN-WOUND SKIN RED. RASHES. RECOMMENDATIONS: -APPLY HEEL RAISERS TO HEELS, OFFLOAD HEELS -CLEANSE SACRALCOCCYX WOUND WITH NS. PAT DRY, PACK WITH SILVER ALGINATE DRESSING TO WOUND BED THEN APPLY Z GUARD TO ALLAN WOUND SKIN, COVER WITH DRY DRESSING, SECURE WITH TAPE Q3D AND PRN IF SOILING -APPLY Z GUARD TO GROINS AND ALLAN-ANAL SKIN BID AND PRN IF SOILING -POSITIONING: TURN AND REPOSITION PATIENT Q 2H OR SOONER USE PILLOWS TO KEEP BONY PROMINENCES FROM DIRECT CONTACT WITH SURFACES USE REPOSITIONING WEDGES TO PROVIDE 30-DEGREE ANGLE FOR SIDE LYING POSITIONS OFFLOADING OR FOAM DRESSING TO ALL TUBING TO PREVENT MEDICAL DEVICES RELATED PRESSURE INJURY -RE-EVALUATING AND MANAGING INCONTINENCE MONITOR SKIN CONDITION DURING POSITION CHANGE DO NOT MASSAGE REDNESS, BONY PROMINENCES, DO NOT USE DONUT-TYPE DEVICES FREQUENT ALLAN-CARE AND PROVIDE BARRIER CREAMS PRN IF SOILING MOISTURE CONTROL BY OFFER BED BADILLO/URINAL /ABSORBENT PAD TO WICK AND HOLD MOISTURE KEEP SKIN DRY AND PROTECT FROM FRICTION -MANAGE FRICTION/SHEAR/MOBILITY KEEP HOB AT THE LOWEST LEVEL OF ELEVATION NO MORE THAN 30 DEGREE UNLESS OTHERWISE CONTRAINDICATED USE LIFT SHEET OR TRANSFER DEVICE TO MOVE PATIENT AND PREVENT LATERAL SHEER. PROTECT HEELS, ELBOWS BONY PROMINENCES WITH SKIN BERRIES OR FOAM DRESSING IF EXPOSED TO FRICTION OFFLOAD BILATERAL HEELS BY PLACING PILLOWS UNDER CALVES AT ALL TIMES, UNLESS OTHERWISE CONTRAINDICATED -PRESSURE REDISTRIBUTION SURFACE THERAPY ABDIFATAH ISOFLEX SKYLER MATTRESS -NUTRITION: PLEASE FOLLOW RD RECOMMENDATIONS AND OFFER NUTRITION SUPPLEMENTS IF ORDERED.
[2022-01-30] MEDS ORDERED: ALGINATE DRESSING MC PRN (12:10)
[2022-01-30] MEDS: Z-GUARD PASTE TP SCH (13:00)
--- NOTE | 2022-01-30 13:00 | NUR ---
PATIENT IV NOT FLUSHING, IV DISLODGED. PATIENT REFUSED PLACEMENT OF NEW IV WILL TRY AGAIN.
[2022-01-30 16:00] VITALS: BP 125/81
--- NOTE | 2022-01-30 17:30 | NUR ---
DC PLANNING PATIENT IS A 67-YEAR OLD MALE ADMITTED TO THE [facility]/ED DUE TO INCREASED BACK PAIN FOR ABOUT 2 WEEKS, CONFUSION, AND ABNORMAL LABS AT [facility]. PATIENT IS BEDBOUND WITH HX OF CVA. ITALO MET WITH PATIENT AT BEDSIDE TO DISCUSS AND GATHER HIS COLLATERAL INFORMATION, PATIENT IS SERBIAN SPEAKING ONLY. DURING THE VISIT PATIENT WAS UNABLE TO PROVIDE HIS OWN INFORMATION, HOWEVER REPORTED BE[facility] PLAC[facility], OVER A MONTH AGO. PATIENT WAS ABLE TO PROVIDE HIS EMERGENCY CONTACT AND MEDICAL DECISION MAKER BROTHER JESSICA WITH WHO HE USED TO LIVE AT ONE POINT OF HIS LIFE, UNTIL HE WAS UNABLE TO CARE FOR HIMSELF. ITALO ASKED PATIENT IF THESE HEALTHCARE BUSINESS ANALYST CAN PROVIDE A CALL TO HIS BROTHER JESSICA AT . PATIENT AGREED AND CONSENTED. SW CALL PATIENT'S BROTHER JESSICA WHO PROVIDED PATIENT'S BACKGROUND INFORMATION. PER PATIENT'S BROTHER REPORTED THAT PATIENT WAS LIVING WITH FAMILY IN [facility] IN 09/14/2022. DURING THAT TIME HE HAD A STROKE THAT SEND HIM TO [facility] FROM THERE AFTER 2 MONTHS OF HOSPITALIZATIONS PATIENT WAS SEND TO [facility] DUE TO HIS LIMITATIONS WITH HIS [facility] THAT WAS THE SNF THAT ACCEPTED PATIENT AT THE TIME EVEN IF IT WAS TO FAR FROM HIS HOME AND FAMILY IN [facility] IN 12/2021. RECENTLY ABOUT 6 WEEKS AGO PATIENT'S HEALTH DECLINED AGAIN IN [facility] AND WAS SEND TO [facility] IN THE BEGANING OF JANUARY. PER PATIENT'S BROTHER [facility], SEND HIM BACK TO BE RE-ADMITTED DUE TO PATIENT'S, ABNORMAL LABS AND BACK PAIN, HOWEVER BROTHER IS CONCERN THAT SNF WILL NOT TAKE PATIENT BACK. PATIENT HAS PLENTY OF FAMILY SUPPORT HOWEVER; NO ONE FROM THE FAMILY IS ABLE TO CARE FOR HIM AT HOME DUE TO HIS NEW LEVEL OF NEEDS INCREASED OVER LAST COUPLE MONTHS. THEREFORE; HE WILL BE RETURNING TO [facility] WHEN HE IS READY FOR DC FROM [facility]. PATIENT HAS ADVANCE DIRECTIVES IN PLACE AND HAS HIS BROTHER JESSICA PATIENT'S MEDICAL DECISION MAKER. PATIENT HAS ALREADY DONE HIS ADVANCE DIRECTIVES THEREFORE PATIENT DECLINED A.D. INF. PACKET PROVIDED BY ITALO. PATIENT REPORTED NOT HAVING ANY ISSUES GETTING OR TAKING HIS MEDICATIONS AND HAS A WHEELCHAIR HIS ONLY DME. PATIENT WILL CONTINUE TX. UNTIL READY TO GO BACK TO [facility] AT [place]. SW WILL FOLLOW UP NEEDED
[2022-01-30 20:00] VITALS: BP 112/71
[2022-01-30] MEDS: ATORVASTATIN 20 MG TAB PO SCH (21:00)
[2022-01-31] VITALS: BP 114/70
[2022-01-31] MEDS: Z-GUARD PASTE TP SCH ×2 (01:00→13:25)
--- NOTE | 2022-01-31 01:30 | NUR ---
PATIENT AWAKE ALERT TO VERBAL COMMAND ON ROOM AIR SAT 98%. TEMP 97.9 B/P 112/71 LUNGS DIMINISH ON MONITOR SINUS. PATIENT HAS NS INFUSING AT 50 HOUR STARTED 22 GA IN RIGHT HAND. PATIENT HAS F/C DRAINING RENZO URINE. PATIENT NPO EXCEPT MEDS. PATIENT HAS SACRAL WOUND. DRSG DRY INTACT. NO DISTRESS NOTED.
[2022-01-31 04:00] VITALS: BP 115/70
[2022-01-31 05:51] LABS: BASOPHILS # (AUTO) 0.1 K/uL (0.00-0.22); BASOPHILS % (AUTO) 0.9 % (0.0-2.0); EOSINOPHILS # (AUTO) 0.9 K/uL (0-0.4); EOSINOPHILS % (AUTO) 11.2 % (0.0-4.0); HEMATOCRIT 26.2 % (36-52); HEMOGLOBIN 8.6 g/dL (12.0-18.0); LYMPHOCYTES # (AUTO) 2.1 K/uL (2.0-11.5); LYMPHOCYTES % (AUTO) 27.3 % (20.5-51.1); MEAN CORPUSCULAR HEMOGLOBIN 28 pg (27-31); MEAN CORPUSCULAR HGB CONC 33 g/dL (33-37); MEAN CORPUSCULAR VOLUME 85.7 fL (80-94); MONOCYTES # (AUTO) 0.7 K/uL (0.8-1.0); MONOCYTES % (AUTO) 8.5 % (1.7-9.3); NEUTROPHILS % (AUTO) 52.1 % (42.2-75.2); PLATELET COUNT (AUTO) 566 K/uL (140-450); RED BLOOD CELL COUNT(AUTO) 3.06 MIL/uL (4.20-6.10); RED CELL DISTRIBUTION WIDTH 18.4 % (11.6-13.7); WHITE BLOOD COUNT (AUTO) 7.8 K/uL (4.8-10.8)
[2022-01-31 05:57] LABS: ANION GAP 12.3 (8-16); CARBON DIOXIDE 23.7 mmol/L (21-32); CREATININE 2.3 mg/dL (0.6-1.3)
[2022-01-31 06:30] LABS: MAGNESIUM 1.9 mg/dL (1.8-2.4); PHOSPHORUS 3.8 mg/dL (2.5-4.9)
[2022-01-31 08:00] VITALS: BP 127/69
--- NOTE | 2022-01-31 08:00 | NUR ---
RECEIVED PATIENT LAYING IN BED AWAKE. PATIENT ALERT AND ORIENTED X2 NEPALI SPEAKING, PATIENT CHIEF COMPLAINT ABNORMAL LAB VALUES. DIAGNOSED WITH HYPONATREMIA AND UTI, PATIENT IS CURRENTLY TAKING ROCEPHIN. PATIENT LUNGS CLEAR AND BOWELS NORMAL ACTIVE. PATIENT WITH PITTING EDEMA ON HIS LEFT LOWER LEG, PATIENT WITH MONTEMAYOR CATHETER. PATIENT WITH A STAGE 4 PRESSURE ULCER ON SACRUM. PATEIN ELIO RESIDUAL LEFT SIDED WEAKNESS FROM A CVA. LEGS CONTRACTED AND LEFT ARM CONTRACTED. CALL LIGHT WITHIN REACH. BED AT LOWEST POSITION AND LOCKED, WILL CONTINUE TO MONITOR.
[2022-01-31] MEDS: ASCORBIC ACID 500 MG TAB PO SCH ×2 (09:51→20:57)
[2022-01-31] MEDS: FERROUS SULFATE 325 MG TABEC PO SCH (09:51)
[2022-01-31] MEDS: ASPIRIN 81 MG TAB.CHEW PO SCH (09:51)
[2022-01-31] MEDS: carvediloL 3.125 MG TAB PO SCH ×2 (09:51→20:57)
[2022-01-31] MEDS: SENNA 8.6 MG TAB PO SCH (09:51)
[2022-01-31] MEDS: POLYETHYLENE GLYCOL 17 GM/PKT PO SCH (09:55)
[2022-01-31] MEDS: NACL 0.45% 1,000 ML IV SCH ×2 (11:00→23:18)
[2022-01-31 12:00] VITALS: BP 136/83
--- NOTE | 2022-01-31 12:00 | NUR ---
PATIENT BROTHER CAME IN AND GAVE PATIENT FOOD, BROTHER EDUCATED ON PATIENT NPO STATUS.
--- NOTE | 2022-01-31 13:22 | NUR ---
01/31/22 RD INITIAL ASSESSMENT COMPLETED PLEASE REFER TO NUTRITION ASSESSMENT UNDER CARE ACTIVITY FOR ESTIMATED NUTRITIONAL NEEDS. 1. WHEN/IF MEDICALLY APPROPRIATE, RECOMMEND RENAL MECHANICAL SOFT DIET 2. RECOMMEND DEVI BID PER RD PROTOCOL 3. RD TO FOLLOW-UP 2-3 DAYS, HIGH RISK CHAVA MCGOWAN, RD
--- NOTE | 2022-01-31 13:45 | NUR ---
DC PLANNING: THE PATIENT WAS BIBA FROM [facility] FOR ELEVATED SODIUM AND CREATININE. H/O CVA WITH HEMIPLEGIA, ANEMIA, AFIB, METABOLIC ENCEPHALOPATHY, OSTEOMYELITIS OF THE SACRAL REGION, HTN AND CAD. CXR SUGGESTIVE OF PNA, NA+ 150, CR 2.4. STARTED ON ROCEPHIN AND IVF'S, ORDER FOR NEPHRO CONSULT AND WOUND CARE ASSESSMENT. CM MET WITH THE PATIENT AND HIS BROTHER FEDERICA AT BEDSIDE. THE PATIENT HAS BEEN AT [facility] FOR A FEW MONTHS AND IS TOTAL CARE RELATED TO A PREVIOUS CVA. THE PATIENT WAS ABLE TO ENGAGE WITH CM BY SMILING OR NODDING BUT WAS NOT ABLE TO ANSWER QUESTIONS OR VERBALIZE. PER THE FAMILY PATIENT WILL RETURN TO [facility] WHEN CLINICALLY STABLE, CM WILL FOLLOW. Addendum: 01/31/22 at 1355 by Ingris Cottrell CM Amended: Links added. Addendum: 02/01/22 at 1215 by Ingris Cottrell CM DC PLANNING: DC ORDER RECEIVED, PATIENT RETURNING TO [facility], ROOM 217C, DR SOLOMON TO FOLLOW. PATIENT TO BE PICKED UP BY [facility] ([phone]) AT 1830. NUMBER TO CALL REPORT IS [phone]. LEFT FOR HIS BROTHER FEDERICA ENDORSING DC AND TIME. CM WILL FOLLOW. Addendum: 02/01/22 at 1253 by Ingris Cottrell CM DC PLANNING: CM SPOKE WITH THE PATIENT AT BEDSIDE TO LET HIM KNOW THAT HE'LL RETURN TO [facility] TODAY AT 1830 AND THAT HIS BROTHER HAS BEEN NOTIFIED. PATIENT IN AGREEMENT WITH RETURN TO [facility], CM WILL FOLLOW.
--- NOTE | 2022-01-31 14:00 | NUR ---
PERFORMED WOUND CARE ON SACRAL WOUND, NO FOUL ODOR OR SIGNS OF INFECTION.
--- NOTE | 2022-01-31 14:19 | NUR ---
LATE ENTRY- ROCEPHIN DISCONTINUED AT 1840.
[2022-01-31 16:00] VITALS: BP 160/125
--- NOTE | 2022-01-31 19:30 | NUR ---
RECEIVED BEDSIDE REPORT FROM DAY RN. PT IS SITTING UP IN BED EATING DINNER. PT IS FRISIAN SPEAKING. AAOX2 SELF AND PLACE. PT IS ABLE TO MAKE NEEDS KNOWN, BEDREST. RESPIRATION IS EQUAL AND UNLABORED ON ROOM AIR. PT HAS A 22G ON THE RIGHT AC INFUSING 1/2 NS AT 50 MLS/HR. PT ALSO HAS A STAGE 4 SACRAL WOUND DRESSING IS C/D/I. NOTED WITH SCABS ON LOWER AND UPPER LIMBS. PT ALSO HAS A MONTEMAYOR CATHETER IN PLACE DRAINING YELLOW URINE. POC DISCUSSED WITH PT NEEDS REINFORCEMENT. FALL PRECAUTION IN PLACE. CALL LIGHT IS WITHIN REACH. WILL CONTINUE TO MONITOR.
[2022-01-31 20:00] VITALS: BP 126/77
[2022-01-31] MEDS: ATORVASTATIN 20 MG TAB PO SCH (20:57)
--- NOTE | 2022-01-31 20:57 | NUR ---
VITAL SIGNS ARE WITHIN NORMAL LIMITS. SAMM MEDICATIONS TAKEN. ALL SAFETY MEASURES ARE IN PLACE. WILL CONTINUE TO MONITOR.
--- NOTE | 2022-01-31 22:05 | NUR ---
PATIENT WAS CLEAN AND REPOSITION WITH ASSISTANCE OF SKIN DIVER. ALL NEEDS MET. WILL CONTINUE TO MONITOR.
[2022-02-01] VITALS: BP 155/75
--- NOTE | 2022-02-01 | NUR ---
VITAL SIGNS ARE WITHIN NORMAL LIMITS. PT WAS CLEANED AND REPOSITION. ALL NEEDS MET. WILL CONTINUE TO MONITOR.
[2022-02-01] MEDS: Z-GUARD PASTE TP SCH ×2 (00:47→12:39)
--- NOTE | 2022-02-01 02:02 | NUR ---
PT OBSERVED RESTING IN BED WITH EYES CLOSED. CHEST RISE AND FALL NOTED.
[2022-02-01 04:00] VITALS: BP 100/66
--- NOTE | 2022-02-01 04:15 | NUR ---
VITAL SIGNS ARE WITHIN NORMAL LIMITS. ALL SAFETY MEASURES ARE IN PLACE. WILL CONTINUE TO MONITOR.
[2022-02-01 05:26] LABS: ANION GAP 15.1 (8-16); CARBON DIOXIDE 21.6 mmol/L (21-32); CREATININE 2.2 mg/dL (0.6-1.3); POTASSIUM 3.7 mmol/L (3.5-5.1)
[2022-02-01 05:30] LABS: MAGNESIUM 1.7 mg/dL (1.8-2.4); PHOSPHORUS 3.7 mg/dL (2.5-4.9)
--- NOTE | 2022-02-01 07:26 | NUR ---
GAVE BEDSIDE REPORT TO DAY RN, PT ENDORSED IN STABLE CONDITION
--- NOTE | 2022-02-01 07:27 | NUR ---
RECEIVED BEDSIDE REPORT FROM WEB PAGE DEVELOPER NURSE FOR CONTINUITY OF CARE. PT IS AAOX2 SELF AND PLACE. PT IS ABLE TO MAKE NEEDS KNOWN, BEDREST. RESPIRATION IS EQUAL AND UNLABORED ON ROOM AIR. SKIN IS WARM, DRY, AND NON-INTACT. HAS A RAC 22G INFUSING 1/2 NS AT 50 MLS/HR. HAS A STAGE 4 SACRAL WOUND DRESSING IS C/D/I. NOTED WITH SCABS ON LOWER AND UPPER LIMBS. PT ALSO HAS A MONTEMAYOR CATHETER IN PLACE DRAINING YELLOW URINE. PLAN OF CARE DISCUSSED WITH PT NEEDS REINFORCEMENT. FALL PRECAUTION IN PLACE. SAFETY PRECAUTIONS IN PLACE. CALL LIGHT IS WITHIN REACH. WILL CONTINUE TO MONITOR.
[2022-02-01 08:00] VITALS: BP 116/67
[2022-02-01] MEDS: SENNA 8.6 MG TAB PO SCH (08:53)
[2022-02-01] MEDS: FERROUS SULFATE 325 MG TABEC PO SCH (08:54)
[2022-02-01] MEDS: carvediloL 3.125 MG TAB PO SCH (08:54)
[2022-02-01] MEDS: ASCORBIC ACID 500 MG TAB PO SCH (08:54)
[2022-02-01] MEDS: POLYETHYLENE GLYCOL 17 GM/PKT PO SCH (08:54)
[2022-02-01] MEDS: ASPIRIN 81 MG TAB.CHEW PO SCH (08:54)
[2022-02-01] MEDS ORDERED: IV Rocephin IV (09:20)
--- NOTE | 2022-02-01 09:24 | NUR ---
ALL SCHEDULED MEDS GIVEN. PT IS STABLE. NO DISTRESS NOTED. WILL CONTINUE TO MONITOR.
[2022-02-01 12:00] VITALS: BP 134/84
--- NOTE | 2022-02-01 12:40 | NUR ---
IV WAS DISLODGE. INSERTED NEW 22G ON RAC. INTACT AND PATENT
--- NOTE | 2022-02-01 15:20 | NUR ---
CONTACTED [facility] AND SPOKE TO DANIELLA LINDA TO ENDORSE PATIENT REPORT. INFORMED HIM THAT PATIENT WILL BE PICKED UP AT 1830 BY [facility].
[2022-02-01 16:00] VITALS: BP 118/64
[2022-02-01 17:36] VITALS: BP 118/64
--- NOTE | 2022-02-01 18:17 | NUR ---
PATIENT PICKED UP BY [facility]. PATIENT WILL BE GOING TO [facility] IN ROOM [address] UNDER DR. SOLOMON.
--- NOTE | 2022-02-01 18:28 | NUR ---
CONTACTED PATIENT'S FAMILY AND LEFT A VOICEMAIL THAT PATIENT HAS BEEN DISCHARGE AND TRANSPORTED BACK TO [facility]
[2022-02-01 22:17] LABS: BASOPHILS # (AUTO) 0.1 K/uL (0.00-0.22); BASOPHILS % (AUTO) 1.6 % (0.0-2.0); EOSINOPHILS # (AUTO) 0.6 K/uL (0-0.4); EOSINOPHILS % (AUTO) 7.8 % (0.0-4.0); HEMATOCRIT 25.7 % (36-52); HEMOGLOBIN 7.9 g/dL (12.0-18.0); LYMPHOCYTES # (AUTO) 2.2 K/uL (2.0-11.5); LYMPHOCYTES % (AUTO) 27.7 % (20.5-51.1); MEAN CORPUSCULAR HEMOGLOBIN 28 pg (27-31); MEAN CORPUSCULAR HGB CONC 31 g/dL (33-37); MEAN CORPUSCULAR VOLUME 90.7 fL (80-94); MONOCYTES # (AUTO) 0.6 K/uL (0.8-1.0); MONOCYTES % (AUTO) 7.8 % (1.7-9.3); NEUTROPHILS # (AUTO) 4.4 K/uL (1.8-7.7); NEUTROPHILS % (AUTO) 55.1 % (42.2-75.2); PLATELET COUNT (AUTO) 532 K/uL (140-450); RED BLOOD CELL COUNT(AUTO) 2.83 MIL/uL (4.20-6.10); RED CELL DISTRIBUTION WIDTH 19.2 % (11.6-13.7); WHITE BLOOD COUNT (AUTO) 7.9 K/uL (4.8-10.8)
[2022-02-02] MEDS ORDERED: ALGINATE DRESSING MC SCH (09:00)
== END 2022-02-01 18:56 | DRG 469 ==
LOC: MED 13:51 → MTU 17:13
DX: N17.9 Acute kidney failure, unspecified (principal); E87.0 Hyperosmolality and hypernatremia; D63.8 Anemia in other chronic diseases classified elsewhere; G81.94 Hemiplegia, unspecified affecting left nondominant side; E86.0 Dehydration; I48.91 Unspecified atrial fibrillation; N39.0 Urinary tract infection, site not specified; Z20.822 Contact with and (suspected) exposure to COVID-19; E78.5 Hyperlipidemia, unspecified; E87.6 Hypokalemia; I10 Essential (primary) hypertension; I25.10 Atherosclerotic heart disease of native coronary artery without angina pectoris; Z95.1 Presence of aortocoronary bypass graft; Z79.899 Other long term (current) drug therapy
CPT/HCPCS: 36415; 70450; 71045; 80048; 80053; 80305; 81001; 82150; 82948; 83036; 83605; 83690; 83735; 83880; 84100; 84134; 84443; 84484; 85025; 85610; 85730; 87040; 87081; 87086; 93005; 96365; 99285; G0480; G0482; J0696; J1644; J3475; J7030; J7060; Q0092

== ENCOUNTER 2022-09-17 16:51 | Emergency (ER) | payer MEDICAID ==
[~2022-09-17] VITALS: Ht 170.2 cm; Wt 68.0 kg
[~2022-09-17 16:51] MED LIST changes: +ACET-2619 PO; +ASCO-5 PO; +ASPI81CT95 PO; +IV Rocephin IV; -IV Vancomycin IV; -IV Zosyn IV; +MIRABULK PO; +OMEP-277 PO; +PETR113O TP; +PRAV40TA3 PO; +SENN-74 PO
[2022-09-17 16:57] VITALS: BP 114/71
[2022-09-17 18:02] LABS: BASOPHILS # (AUTO) 0.1 K/uL (0.00-0.22); EOSINOPHILS # (AUTO) 0.7 K/uL (0-0.4); EOSINOPHILS % (AUTO) 7.7 % (0.0-4.0); HEMATOCRIT 38.9 % (36-52); HEMOGLOBIN 13.3 g/dL (12.0-18.0); LYMPHOCYTES # (AUTO) 2.7 K/uL (2.0-11.5); LYMPHOCYTES % (AUTO) 29.7 % (20.5-51.1); MEAN CORPUSCULAR HEMOGLOBIN 30 pg (27-31); MEAN CORPUSCULAR HGB CONC 34 g/dL (33-37); MEAN CORPUSCULAR VOLUME 86.6 fL (80-94); MONOCYTES # (AUTO) 0.8 K/uL (0.8-1.0); MONOCYTES % (AUTO) 8.6 % (1.7-9.3); NEUTROPHILS # (AUTO) 4.8 K/uL (1.8-7.7); PLATELET COUNT (AUTO) 416 K/uL (140-450); RED CELL DISTRIBUTION WIDTH 13.6 % (11.6-13.7)
[2022-09-17] MEDS: NACL 0.9% 500 ML IV ONE (18:03)
[2022-09-17 18:54] LABS: ALBUMIN 2.8 g/dL (3.4-5.0); ANION GAP 12.6 (8-16); ASPARTATE AMINOTRANSFERASE 34 U/L (15-37); CARBON DIOXIDE 28.9 mmol/L (21-32); CHLORIDE 104 mmol/L (98-107); CREATININE 1.5 mg/dL (0.6-1.3); GFR ARICAN-AMERICAN 60 mL/min (>90); GLUCOSE 91 mg/dL (74-106); POTASSIUM 4.5 mmol/L (3.5-5.1); SODIUM SERUM 141 mmol/L (136-145); TOTAL BILIRUBIN 0.3 mg/dL (0.0-1.0); UREA NITROGEN, BLOOD 31 mg/dL (7-18)
[2022-09-17 22:01] LABS: APPEARANCE,URINE CLEAR (CLEAR); BILIRUBIN,URINE NEGATIVE (NEGATIVE); BLOOD, URINE TRACE-I (NEGATIVE); COLOR,URINE YELLOW (YELLOW); LEUKOCYTE ESTERASE ,URINE 2+ (NEGATIVE); NITRITE, URINE POSITIVE (NEGATIVE); UGLUCOSE NEGATIVE (NEGATIVE)
[2022-09-17 22:14] LABS: RBC,URINE 0-5 /HPF (0-5)
[2022-09-17] MEDS ORDERED: CEFD300C3 PO (22:14)
[2022-09-17 22:15] LABS: WBC,URINE 20-60 /HPF (0-5)
[2022-09-17] MEDS ORDERED: cefTRIAXone 1,000 MG VIAL ONE (22:22)
[2022-09-18] MEDS: DEXTROSE 50% 50 ML SYR IVP ONE (11:16)
[2022-09-18] MEDS: NACL 0.9% 1,000 ML IV ONE (12:56)
[2022-09-18 18:38] VITALS: BP 119/57
[2022-09-20] MEDS ORDERED: CIPR500T4 PO (16:50)
== END 2022-09-18 18:42 ==
LOC: MED 16:51
DX: S00.01XA Abrasion of scalp, initial encounter (principal); Z20.822 Contact with and (suspected) exposure to COVID-19; N39.0 Urinary tract infection, site not specified; I10 Essential (primary) hypertension; F20.9 Schizophrenia, unspecified; Z86.73 Personal history of transient ischemic attack (TIA), and cerebral infarction without residual deficits; Z79.899 Other long term (current) drug therapy; Z98.84 Bariatric surgery status; Z79.82 Long term (current) use of aspirin; W19.XXXA Unspecified fall, initial encounter; Y93.89 Activity, other specified; Y92.89 Other specified places as the place of occurrence of the external cause; Y99.8 Other external cause status
CPT/HCPCS: 36415; 70450; 71045; 72125; 80053; 81001; 83605; 84484; 85025; 87086; 87426; 87804; 90471; 90715; 93005; 96361; 96365; 96375; 99285; J0696; J7030; Q0092